=== PATIENT | female | born 1930 | race Caucasian/White ===

== ENCOUNTER 2018-09-23 18:18 | Inpatient (IN) ==
[2018-09-23] MEDS ORDERED: SODIUM CHLORIDE 0.9% 500 ML IV SCH (18:45)
--- NOTE | 2018-09-23 19:12 | XRay Report ---
XR chest 1V portable CLINICAL HISTORY: weakness COMPARISON STUDY: Chest radiograph June 17, 2010. FINDINGS: Linear left basilar opacity favors atelectasis. There is no evidence for pulmonary edema or pneumonia. Cardiomediastinal silhouette is unchanged. Cardiomegaly is stable. IMPRESSION: No acute cardiopulmonary findings. Electronically signed by: Watson Cornejo M.D. 09/23/2018 7:11 PM
[2018-09-23 19:14] LABS: Hematocrit (blood only) 32.3 % (37-47); Hemoglobin 9.8 g/dL (12.0-16.0); Mean Corpuscular Hgb Conc 30.3 g/dL (32-36); Mean Corpuscular Volume 78.4 fL (80-100); Mean Platelet Volume 8.2 fL (7.4-10.4); Platelet Count 476 K/uL (130-400); RDW Coefficient of Variation 20.1 % (11.5-14.5); RDW Standard Deviation 56.7 fL (36.4-46.3); Red Blood Count 4.12 M/uL (4.2-5.4); White Blood Count 11.29 K/uL (4.8-10.8)
[2018-09-23 19:31] LABS: Alanine Aminotransferase 17 U/L (12-78); Albumin Level 1.9 gm/dl (3.4-5.0); Aspartate Aminotransferase 26 U/L (15-37); BUN Creatinine Ratio 24.6 (10-20); Blood Urea Nitrogen 40 mg/dl (7-18); Carbon Dioxide 22 mmol/L (21-32); Chloride 106 mmol/L (98-107); Creatinine Clr Calc Pharmacy 23.9 ml/min; Est GFR (African American) 31.8; Est GFR (Non-African American) 27.4; Glucose 105 mg/dl (70-99); Magnesium 2.2 mg/dl (1.8-2.4); Potassium 3.8 mmol/L (3.5-5.1); Sodium 139 mmol/L (136-145)
[2018-09-23 19:35] LABS: Prothrombin Time 46.9 Seconds (9.0-12.0)
[2018-09-23 19:42] LABS: Albumin Globulin Ratio 0.4 (0.9-2); Alkaline Phosphatase 121 U/L (45-117); Bilirubin,Total 0.3 mg/dl (0.2-1); Globulin 5.2 gm/dl (2.5-4.0); Total Protein 7.1 gm/dl (6.4-8.2); Troponin I < 0.015 ng/ml (0-0.045)
[2018-09-23 19:58] LABS: Appearance Urine Clear (Clear); Bacteria Urine Automated 3+ (Negative); Bilirubin Urine Negative (Negative); Blood Urine 2+ (Negative); Color Urine Yellow; Epithelial Cell Urine Auto >30 /lpf (0-5); Glucose Urine UA Negative (Negative); Ketones Urine Trace (Negative); Leukocyte Esterase Urine Negative (Negative); Nitrite Urine Positive (Negative); Protein Urine Trace (Negative); RBC Urine Automated >30 /hpf (0-4); Specific Gravity Urine 1.028 (1.000-1.030); Urobilinogen Urine Negative (Negative)
[2018-09-23 20:08] LABS: Basophils # (auto) 0.01 K/uL (0-0.2); Basophils % (auto) 0.1 %; Hypochromasia Present; Immature Granulocytes # (auto) 0.04 K/uL (0.00-0.02); Immature Granulocytes % (auto) 0.4 %; Lymphocytes # (auto) 1.16 K/uL (1.2-3.4); Lymphocytes % (auto) 10.3 %; Monocytes # (auto) 0.51 K/uL (0.11-0.59); Monocytes % (auto) 4.5 %; Neutrophils # (auto) 9.57 K/uL (1.4-6.5); Neutrophils % (auto) 84.7 %; Polychromasia 1+
[2018-09-23 20:10] LABS: INR 5.1 (0.9-1.1)
[2018-09-23 20:34] LABS: Partial Thromboplastin Ratio 1.8
[2018-09-23] MEDS ORDERED: cefTRIAXone SODIUM 1,000 MG/50 ML BAG IV STA (20:36)
[2018-09-23 20:40] LABS: Mucus Urine Present (None Prsent)
[2018-09-23 20:49] LABS: Partial Thromboplastin Time 48.7 Seconds (21.0-31.0)
--- NOTE | 2018-09-23 20:54 | CT Scan Report ---
CT OF THE HEAD WITHOUT CONTRAST CLINICAL HISTORY: confused, weak COMPARISON STUDY: No previous studies for comparison. CT DOSE: 614.27 mGy.cm TECHNIQUE: Helical axial images of the head were obtained without IV contrast. Automated exposure con trol was utilized for the study. A dose lowering technique was utilized adhering to the principles o f ALARA. FINDINGS: No acute intracranial hemorrhage, midline shift or mass effect is present. There is moderat e atrophy and small vessel disease. 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 There are no findings to suggest acute dural sinus thrombosis or acute territorial infarct. The bas ilar cisterns are patent. There are no extra axial collections. Ventricular system is unremarkable. T here are no significant calvarial abnormalities. Visualized portions of the sinuses and mastoid air c ells are clear. IMPRESSION: No acute intracranial findings. Electronically signed by: Watson Cornejo M.D. 09/23/2018 8:53 PM
[2018-09-23] MEDS ORDERED: PANTOprazole 80 MG in DEXTROSE 5% 100 ML IV STA (21:02)
[2018-09-23] MEDS ORDERED: PHYTONADIONE 5 MG in SODIUM CHLORIDE 0.9% 50 ML IV ONE (21:02)
--- NOTE | 2018-09-23 21:12 | Emergency Department Note ---
Entered by Efe Pereyra acting as a scribe for Hakeem Michel MD History of Present Illness General Chief complaint: Weakness Stated complaint: WEAKNESS, UNABLE TO STAND Time Seen by Provider: 09/23/18 18:25 Source: patient and other (nurse) Limitations: other (mental state) History of Present Illness Onset (ago): hour(s) (today) Location: head (global) Pain Consistency: + other (worsening) Quality: + other (weakness) Associated symptoms: + other (patient denies loss of appetite, urinary symptoms, chest pain, or shortness of breath) History is limited due to mental state. The patient is an 88 year old female who presents to the Emergency Room via EMS with worsening weakness. The patient reportedly slid off of the chair this morning onto the floor. She lives alone and is regularly visited by caretakers. The patient states that she has felt weaker than usual. She denies loss of appetite, urinary symptoms, chest pain, or shortness of breath. Home Medications Home Medications Medication Instructions Recorded Confirmed Type acetaminophen [Tylenol Extra 500 mg PO QID PRN 09/23/18 09/23/18 History Strength] atorvastatin [Lipitor] 20 mg PO HS 09/23/18 09/23/18 History cholecalciferol (vitamin D3) 1,000 unit PO HS 09/23/18 09/23/18 History [Vitamin D3] furosemide 20 mg PO DAILY 09/23/18 09/23/18 History glipizide 5 mg PO BID 09/23/18 09/23/18 History lisinopril 2.5 mg PO HS 09/23/18 09/23/18 History metoprolol succinate [Toprol XL] 50 mg PO HS 09/23/18 09/23/18 History potassium chloride 10 meq PO DAILY 09/23/18 09/23/18 History tramadol 50 mg PO Q6H PRN 09/23/18 09/23/18 History warfarin [Coumadin] 2 mg PO UD 09/23/18 09/23/18 History Allergies Allergy/AdvReac Type Severity Reaction Status Date / Time morphine Allergy Unknown Verified 09/23/18 19:31 codeine AdvReac Unknown UPSET Verified 09/23/18 19:40 STOMACH Past Med/Surg History Medical History Hypertension Family History Other Family history non-contributory Social History Preferred Language: Croatian Feels Safe at Home: Yes Smoking Status: Former smoker Review of Systems Unobtainable due to cognitive status Physical Exam Vital Signs Vital Signs - 24 hr 09/23/18 18:29 09/23/18 18:32 09/23/18 19:00 Temperature 36.5 C Temperature Source Oral Sepsis Recent Fever Within 48 Hours No Sepsis New/Unexplained Change in Mental Status No Sepsis Action Taken by Nursing No Action Required Pulse Rate 87 91 H Pulse Rate from SpO2 Sensor Respiratory Rate 20 17 Blood Pressure 114/67 Blood Pressure Mean 82 Pulse Oximetry 99 Oxygen Delivery Method Room Air Room Air 09/23/18 19:30 09/23/18 20:00 09/23/18 20:21 Temperature Temperature Source Sepsis Recent Fever Within 48 Hours Sepsis New/Unexplained Change in Mental Status Sepsis Action Taken by Nursing Pulse Rate 87 88 86 Pulse Rate from SpO2 Sensor 87 87 84 Respiratory Rate 24 13 14 Blood Pressure 113/55 L Blood Pressure Mean 74 Pulse Oximetry 99 100 98 Oxygen Delivery Method 09/23/18 20:54 Temperature Temperature Source Sepsis Recent Fever Within 48 Hours Sepsis New/Unexplained Change in Mental Status Sepsis Action Taken by Nursing Pulse Rate 88 Pulse Rate from SpO2 Sensor Respiratory Rate 17 Blood Pressure 112/60 Blood Pressure Mean 77 Pulse Oximetry Oxygen Delivery Method GENERAL: Patient is in no acute distress. HEENT: No acute trauma, normocephalic atraumatic, mucous membranes dry, no nasal congestion, no scleral icterus. NECK: No stridor, no adenopathy, no meningismus, trachea is midline. LUNGS: Clear to auscultation bilaterally, no wheeze, no rhonchi, breath sounds equal. HEART: Without murmurs gallops or rubs, regular rate and rhythm. ABDOMEN: Soft, nontender, bowel sounds positive, reducible non-tender umbilical hernia, no peritonitis. RECTAL: Brown stool, heme positive. EXTREMITIES: Mild bilateral pedal edema, somewhat worse on the right. Chronic skin changes. Erythema to the bilateral lower extremities with blistering, some of the blisters have broken. Toenails are unkempt. Moves all extremities without significant pain. NEUROLOGIC: Awake and alert, poor historian, no acute motor or sensory deficits, no focal weakness. SKIN: There is some skin breakdown to the mid-buttock. There is an erythematous rash to the groin, under the breasts and abdominal crease. Smell of yeast noted. No jaundice, no diaphoresis. Course 1825: The patient was evaluated in room C2A, and a complete history and physical examination were performed. 2100: I updated the patient and her son on results. 2102: I consulted Dr. Deo Hauser Hospitalist. The patient will be reevaluated for hospitalization. Consultations Consultation #1: I consulted Dr. Deo Hauser Hospitalist. The patient will be reevaluated for hospitalization. Time: 21:03 Administered Medications Discontinued Medications Sodium Chloride (Nss) 500 mls @ 999 mls/hr IV .Q31M SAI Stop: 09/23/18 19:15 Last Infusion: 09/23/18 20:15 Dose: 0 mls/hr Documented by: [id number] Admin: 09/23/18 19:43 Dose: 999 mls/hr Documented by: [id number] Ceftriaxone Sodium (Rocephin) 1,000 mg in 50 mls @ 100 mls/hr IV NOW STA Stop: 09/23/18 21:05 Last Admin: 09/23/18 20:53 Dose: 100 mls/hr Documented by: [id number] Medical Decision Making Differential Diagnosis Differential diagnosis: dehydration, stroke, intracranial bleeding, UTI, electrolyte imbalance, pneumonia, anemia, OK, debilitation Medical Records Attestation: I reviewed the patient's medical records. Home Medications Current Medication List: was personally reviewed by me Laboratory Data Attestation: I reviewed the patient's lab results. Result diagrams: 09/23/18 19:00 09/23/18 19:00 Lab Results 09/23/18 09/23/18 09/23/18 Range/Units 19:00 19:00 19:00 WBC 11.29 H (4.8-10.8) K/uL RBC 4.12 L (4.2-5.4) M/uL Hgb 9.8 L (12.0-16.0) g/dL Hct 32.3 L (37-47) % MCV 78.4 L (80-100) fL MCH 23.8 L (25-34) pg MCHC 30.3 L (32-36) g/dL RDW Std Deviation 56.7 H (36.4-46.3) fL RDW Coeff of Kristi 20.1 H (11.5-14.5) % Plt Count 476 H (130-400) K/uL MPV 8.2 (7.4-10.4) fL Immature Gran % (Auto) 0.4 % Neut % (Auto) 84.7 % Lymph % (Auto) 10.3 % [place] % (Auto) 4.5 % Eos % (Auto) 0.0 % Baso % (Auto) 0.1 % Immature Gran # (Auto) 0.04 H (0.00-0.02) K/uL Neut # (Auto) 9.57 H (1.4-6.5) K/uL Lymph # (Auto) 1.16 L (1.2-3.4) K/uL [place] # (Auto) 0.51 (0.11-0.59) K/uL Eos # (Auto) 0.00 (0-0.5) K/uL Baso # (Auto) 0.01 (0-0.2) K/uL Polychromasia 1+ Hypochromasia Present PT 46.9 H (9.0-12.0) Seconds INR 5.1 H (0.9-1.1) APTT (21.0-31.0) Seconds PTT Ratio Sodium 139 (136-145) mmol/L Potassium 3.8 (3.5-5.1) mmol/L Chloride 106 (98-107) mmol/L Carbon Dioxide 22 (21-32) mmol/L Anion Gap 11.0 (3-11) BUN 40 H (7-18) mg/dl Creatinine 1.64 H (0.6-1.2) mg/dl Est Cr Clr Drug Dosing 23.9 ml/min Est GFR ( Amer) 31.8 Est GFR (Non-Af Amer) 27.4 BUN/Creatinine Ratio 24.6 H (10-20) Glucose 105 H (70-99) mg/dl Calcium 8.0 L (8.5-10.1) mg/dl Magnesium 2.2 (1.8-2.4) mg/dl Total Bilirubin 0.3 (0.2-1) mg/dl AST 26 (15-37) U/L ALT 17 (12-78) U/L Alkaline Phosphatase 121 H (45-117) U/L Troponin I < 0.015 (0-0.045) ng/ml Total Protein 7.1 (6.4-8.2) gm/dl Albumin 1.9 L (3.4-5.0) gm/dl Globulin 5.2 H (2.5-4.0) gm/dl Albumin/Globulin Ratio 0.4 L (0.9-2) TSH 2.260 (0.300-4.500) uIu/ml Urine Color Urine Appearance (Clear) Urine pH (4.5-7.5) Ur Specific [place] (1.000-1.030) Urine Protein (Negative) Urine Glucose (UA) (Negative) Urine Ketones (Negative) Urine Blood (Negative) Urine Nitrite (Negative) Urine Bilirubin (Negative) Urine Urobilinogen (Negative) Ur Leukocyte Esterase (Negative) Urine WBC (Auto) (0-5) /hpf Urine RBC (Auto) (0-4) /hpf U Hyaline Cast (Auto) (0-5) /lpf U Epithel Cells (Auto) (0-5) /lpf Urine Bacteria (Auto) (Negative) Ur Renal Epithelial Cell Urine Mucus (None Prsent) 09/23/18 09/23/18 Range/Units 19:00 19:39 WBC (4.8-10.8) K/uL RBC (4.2-5.4) M/uL Hgb (12.0-16.0) g/dL Hct (37-47) % MCV (80-100) fL MCH (25-34) pg MCHC (32-36) g/dL RDW Std Deviation (36.4-46.3) fL RDW Coeff of Kristi (11.5-14.5) % Plt Count (130-400) K/uL MPV (7.4-10.4) fL Immature Gran % (Auto) % Neut % (Auto) % Lymph % (Auto) % [place] % (Auto) % Eos % (Auto) % Baso % (Auto) % Immature Gran # (Auto) (0.00-0.02) K/uL Neut # (Auto) (1.4-6.5) K/uL Lymph # (Auto) (1.2-3.4) K/uL [place] # (Auto) (0.11-0.59) K/uL Eos # (Auto) (0-0.5) K/uL Baso # (Auto) (0-0.2) K/uL Polychromasia Hypochromasia PT (9.0-12.0) Seconds INR (0.9-1.1) APTT 48.7 H* (21.0-31.0) Seconds PTT Ratio 1.8 Sodium (136-145) mmol/L Potassium (3.5-5.1) mmol/L Chloride (98-107) mmol/L Carbon Dioxide (21-32) mmol/L Anion Gap (3-11) BUN (7-18) mg/dl Creatinine (0.6-1.2) mg/dl Est Cr Clr Drug Dosing ml/min Est GFR ( Amer) Est GFR (Non-Af Amer) BUN/Creatinine Ratio (10-20) Glucose (70-99) mg/dl Calcium (8.5-10.1) mg/dl Magnesium (1.8-2.4) mg/dl Total Bilirubin (0.2-1) mg/dl AST (15-37) U/L ALT (12-78) U/L Alkaline Phosphatase (45-117) U/L Troponin I (0-0.045) ng/ml Total Protein (6.4-8.2) gm/dl Albumin (3.4-5.0) gm/dl Globulin (2.5-4.0) gm/dl Albumin/Globulin Ratio (0.9-2) TSH (0.300-4.500) uIu/ml Urine Color Yellow Urine Appearance Clear (Clear) Urine pH 5.0 (4.5-7.5) Ur Specific [place] 1.028 (1.000-1.030) Urine Protein Trace H (Negative) Urine Glucose (UA) Negative (Negative) Urine Ketones Trace H (Negative) Urine Blood 2+ H (Negative) Urine Nitrite Positive H (Negative) Urine Bilirubin Negative (Negative) Urine Urobilinogen Negative (Negative) Ur Leukocyte Esterase Negative (Negative) Urine WBC (Auto) 1-5 (0-5) /hpf Urine RBC (Auto) >30 H (0-4) /hpf U Hyaline Cast (Auto) 10-30 H (0-5) /lpf U Epithel Cells (Auto) >30 H (0-5) /lpf Urine Bacteria (Auto) 3+ H (Negative) Ur Renal Epithelial Cell Not Reportable Urine Mucus Present H (None Prsent) Imaging Data Radiologist's Impression: Radiology results as stated below per my review and the radiologist's interpretation: XR chest 1V portable CLINICAL HISTORY: weakness COMPARISON STUDY: Chest radiograph June 17, 2010. FINDINGS: Linear left basilar opacity favors atelectasis. There is no evidence for pulmonary edema or pneumonia. Cardiomediastinal silhouette is unchanged. Cardiomegaly is stable. IMPRESSION: No acute cardiopulmonary findings. Electronically signed by: Watson Cornejo M.D. 09/23/2018 7:[address] OF THE HEAD WITHOUT CONTRAST CLINICAL HISTORY: confused, weak COMPARISON STUDY: No previous studies for comparison. CT DOSE: 614.27 mGy.cm TECHNIQUE: Helical axial images of the head were obtained without IV contrast. Automated exposure control was utilized for the study. A dose lowering technique was utilized adhering to the principles of ALARA. FINDINGS: No acute intracranial hemorrhage, midline shift or mass effect is present. There is moderate atrophy and small vessel disease. 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 There are no findings to suggest acute dural sinus thrombosis or acute territorial infarct. The basilar cisterns are patent. There are no extra axial collections. Ventricular system is unremarkable. There are no significant calvarial abnormalities. Visualized portions of the sinuses and mastoid air cells are clear. IMPRESSION: No acute intracranial findings. Electronically signed by: Watson Cornejo M.D. 09/23/2018 8:53 PM ECG Data Attestation: I personally reviewed and interpreted this ECG as follows: Indication: weakness Rate (beats per minute): 85 Rhythm: normal sinus Findings: + other (old inferior infarct) and + nonspecific-ST abn; no PVC and no ST elevation Comparison ECG Date: from (06/14/10) Change: no significant change Blood Pressure Blood Pressure Findings: Normal blood pressure Blood Pressure Disposition: did not require urgent referral MDM Narrative There is a mild leukocytosis, this could be consistent with infection. The patient does have a lower hemoglobin at 9.8, platelet count was actually elevated at 476. INR was elevated at 5.1, she is over anticoagulated on Co umadin. Creatinine was elevated at 1.6, this is consistent with some dehydration. There was no hepatitis. The patient appeared to be in a euthyroid state. EKG showed a sinus rhythm, no acute ischemia. Cardiac enzyme testing x1 is not consistent with acute cardiac injury. Urinalysis is suggestive of infection, urine culture is pending. Chest film does not show pneumonia or CHF. Brain CT shows no acute bleed or mass-effect. The patient presents with fatigue and weakness. She did receive IV ceftriaxone as antibiotic coverage. She was given IV saline. He received IV vitamin K to reverse her INR. She was given IV Protonix for the potential of GI bleeding. The patient is too weak to be discharged. She is anemic with a potential GI bleed, she is dehydrated, she has a UTI. She is over anticoagulated. She has multiple findings that warrant a hospital stay. I did speak to the patient and her son, I spoke to case management. The on-call hospitalist was consulted. Of note, the patient also has yeast across multiple skin creases. She has it in the groin, and abdominal crease and beneath her breasts. This can be addressed with topical cream or powder during her hospital stay. Impression & Plan Weakness, Anemia, Dehydration, UTI (urinary tract infection), Heme positive stool Discharge Plan Visit Data Chief Complaint: Weakness Stated Complaint: WEAKNESS, UNABLE TO STAND ED Provider: Hakeem Michel Discharge Problem: Weakness, Anemia, Dehydration, UTI (urinary tract infection), Heme positive stool Patient Disposition: Being Evaluated by Hospitalist Forms Stand Alone Forms: [facility] Prescriptions Prescriptions: No Action atorvastatin [Lipitor] 20 mg tablet 20 mg PO HS RF: 0 metoprolol succinate [Toprol XL] 50 mg tablet extended release 24 hr 50 mg PO HS RF: 0 potassium chloride 10 mEq Tablet Extended Release 10 meq PO DAILY RF: 0 tramadol 50 mg Tablet 50 mg PO Q6H PRN (Reason: Pain) RF: 0 acetaminophen [Tylenol Extra Strength] 500 mg Tablet 500 mg PO QID PRN (Reason: Pain) RF: 0 warfarin [Coumadin] 2 mg tablet 2 mg PO UD RF: 0 furosemide 20 mg tablet 20 mg PO DAILY RF: 0 lisinopril 2.5 mg Tablet 2.5 mg PO HS RF: 0 glipizide 5 mg Tablet 5 mg PO BID RF: 0 cholecalciferol (vitamin D3) [Vitamin D3] 1,000 unit Tablet 1,000 unit PO HS RF: 0 Referrals Referrals: Heri Blackmon [Primary Care Provider] - Discharge Problem: Anemia Qualifiers: Anemia type: unspecified type Qualified Code(s): D64.9 - Anemia, unspecified UTI (urinary tract infection) Qualifiers: Urinary tract infection type: site unspecified Hematuria presence: with hematuria Qualified Code(s): N39.0 - Urinary tract infection, site not specified The scribe's documentation has been prepared under my direction and personally reviewed by me in its entirety. I confirm that the note above accurately r eflects all work, treatment, procedures, and medical decision making performed by me.
[2018-09-23] MEDS ORDERED: FLUCONAZOLE SUSP 100 MG/10 ML UDP PO STA (23:30)
[2018-09-24] MEDS ORDERED: POLYETHYLENE (MIRALAX) 17 GM PACK PO PRN (00:36)
[2018-09-24] MEDS ORDERED: SODIUM CHLORIDE 0.9% 1000ML 1,000 ML IV SCH (00:36)
[2018-09-24] MEDS ORDERED: ACETAMINOPHEN 325 MG TAB PO PRN (00:36)
[2018-09-24] MEDS ORDERED: GLUCOSE 40% GEL 15 GM TUBE PO PRN (00:45)
[2018-09-24] MEDS ORDERED: DEXTROSE 50% 50 ML SYRINGE IV PRN (00:45)
[2018-09-24] MEDS ORDERED: CARBOHYDRATES FOR HYPOGLYCEMIA PO PRN (00:45)
[2018-09-24] MEDS ORDERED: GLUCAGON FOR INJ 1 MG VIAL IM PRN (00:45)
[2018-09-24] MEDS ORDERED: GLUCOSE 10 TABS/TUBE PO PRN (00:45)
[2018-09-24] MEDS: PANTOprazole 40 MG in DEXTROSE 5% 100 ML IV SCH ×5 (02:11→21:07)
[2018-09-24] MEDS ORDERED: PNEUMOCOCCAL ADMINISTRATION CHARGE ONE (02:15)
[2018-09-24] MEDS ORDERED: INFLUENZA VACCINE HIGH DOSE 65+ 0.5 ML SYR IM ONE (02:15)
[2018-09-24] MEDS ORDERED: PNEUMOCOCCAL POLYSACCHARIDES 25 MCG/0.5 ML VIAL/SYR IM ONE (02:15)
[2018-09-24] MEDS ORDERED: INFLUENZA ADMINISTRATION CHARGE ONE ×2 (02:15→02:30)
[2018-09-24] MEDS ORDERED: INFLUENZA VIRUS QUAD VACCINE 0.5 ML SYR IM ONE (02:30)
[2018-09-24] MEDS: TRAMADOL HCL 50 MG TABLET PO PRN (02:30)
[2018-09-24 05:56] LABS: Hematocrit (blood only) 27.5 % (37-47); Hemoglobin 8.3 g/dL (12.0-16.0); Immature Granulocytes # (auto) 0.05 K/uL (0.00-0.02); Immature Granulocytes % (auto) 0.4 %; Lymphocytes # (auto) 1.23 K/uL (1.2-3.4); Lymphocytes % (auto) 9.5 %; Mean Corpuscular Hgb Conc 30.2 g/dL (32-36); Mean Corpuscular Volume 78.8 fL (80-100); Mean Platelet Volume 7.9 fL (7.4-10.4); Monocytes # (auto) 0.48 K/uL (0.11-0.59); Monocytes % (auto) 3.7 %; Neutrophils # (auto) 11.23 K/uL (1.4-6.5); Neutrophils % (auto) 86.4 %; Platelet Count 406 K/uL (130-400); RDW Standard Deviation 56.8 fL (36.4-46.3); Red Blood Count 3.49 M/uL (4.2-5.4); White Blood Count 12.99 K/uL (4.8-10.8)
[2018-09-24 06:14] LABS: Calcium 7.5 mg/dl (8.5-10.1); Creatinine Clr Calc Pharmacy 26.6 ml/min; Est GFR (African American) 36.3; Est GFR (Non-African American) 31.3; Magnesium 2.2 mg/dl (1.8-2.4); Potassium 3.3 mmol/L (3.5-5.1)
[2018-09-24 06:18] LABS: Ferritin 118.9 ng/ml (8-388)
[2018-09-24 06:26] LABS: Anisocytosis Present; Hypochromasia Present
[2018-09-24] MEDS ORDERED: POTASSIUM CHLORIDE 20 MEQ TABCR PO STA (06:37)
[2018-09-24 06:47] LABS: Estimated Average Glucose 163 mg/dl; Hemoglobin A1C 7.3 % (4.5-5.6)
--- NOTE | 2018-09-24 07:40 | History and Physical Report ---
DATE OF ADMISSION: 09/23/2018 CHIEF COMPLAINT: Weakness, fall. HISTORY OF PRESENT ILLNESS: An 88-year-old female with past medical history significant for type 2 diabetes, right-sided heart failure, hypertension, history of MT, history of hemorrhoids, gastrointestinal hemorrhage, generalized osteoarthritis, iron deficiency anemia, history of pulmonary embolism, venous thrombosis on Coumadin, was brought in because of fall at home. The patient lives alone but son lives close by and other family lives close by and they help her every day. They go and see her 3-4 times every day. The patient has a hospital bed and she also has a lift chair. As per son, the patient is not ambulating since last 3 weeks before she used to at least transfer from the chair to the bed but right now she is just sitting on her recliner chair and she just gets up and sits on the commode for bathroom and the family has to help wipe her and she goes back to recliner chair and stays there whole day .Three weeks ago, she had a fall. Her falls were generally sliding from the chair, but at that time she adamantly refused to come to the hospital and get admitted and she had refused to go to any fpc, but today again she fell a couple of times, slid from her lift chair and she agreed to come to the hospital. The patient's appetite is good. She is eating regular food, she can swallow okay. She gets Food on Wheels and also family help get the food sometimes. She says she is going to bathroom okay, micturating fine. No burning micturition. Stools are fine. Denies any abdominal pain. She was nauseous on and off. She has occasional dry cough. Denies any chest pain, no shortness of breath, no headache, no blurred vision, no sore throat, no fever, no chills, feeling somewhat chilly, but no fevers. She has chronic lower extremity erythema and swelling, some skin changes, but that gets on and off worse and states that lately she also developed some ulcers in the buttock region and she also has a fungal infection going on below the breast, groins and perineum region and possibly in lower extremity too. Currently, resting comfortable and hemodynamically stable, alert and oriented and her INR was 5.1 in the ER, her hemoglobin was 9.8, she did not go to doctors for about a year as per the son and she refused to go and her last hemoglobin was in 2015 and was 12.3. She was trace Hemoccult positive in the ER. She was given Protonix in the ER and IV vitamin K. She also has history of GI bleed in the past. She was found to be anemic in 02/2009 and she was scoped at that time and found to be due to the duodenal bulb ulcer and also mild gastritis. At that time she was taking 81 strength aspirin eight tablets per day for arthritis and she stopped taking them but after that she developed a pulmonary embolism and DVT transferred by ambulance To [place] and s/p IVC filter placement as well as placed on Coumadin and she again followed GI after that in 2009 and she declined colonoscopy at that time and she seems to be not taking aspirin or NSAIDs on Tylenol p.r.n. for pain. ALLERGIES: MORPHINE AND CODEINE. PAST MEDICAL HISTORY: As mentioned above. PAST SURGICAL HISTORY: Appendectomy, EGD with biopsy, arteriogram for pulmonary artery, laparoscopic cholecystectomy. MEDICATIONS: Lipitor 20 mg p.o. daily, Coumadin 2 mg as directed, Lasix 20 mg p.o. daily, Toprol-XL 50 mg p.o. daily, potassium chloride ER 10 mg p.o. daily, lisinopril 2.5 mg p.o. daily, glipizide 5 mg p.o. b.i.d., vitamin D 1000 units p.o. daily, Demerol 50 mg p.o. q. 6 hours p.r.n., Tylenol 500 mg q.i.d. p.r.n. FAMILY HISTORY: Significant for brother with pancreatic cancer. Sister with ovarian cancer. SOCIAL HISTORY: Currently lives alone. Family helps her. Quit tobacco 35 years ago. No alcohol use, no drug use. REVIEW OF SYMPTOMS: As per HPI. Rest is negative. PHYSICAL EXAMINATION: GENERAL: The patient is of moderate build, not in acute distress. The patient is obese. VITAL SIGNS: Temperature 36.5, pulse 85, respiratory rate 18, blood pressure 90/43, oxygen 99% room air. HEENT: No pallor, no icterus. Pupils equal, round and reactive to light. NECK: No JVD, no neck mass, no carotid bruit. CARDIOVASCULAR: S1, S2 heard, regular rate and rhythm, no murmur, no gallop. RESPIRATORY SYSTEM: Normal AP diameter. No accessory muscle use. No wheezing, no crackles. ABDOMEN: Soft. Bowel sounds present. Nontender. No distention. CENTRAL NERVOUS SYSTEM: Alert and oriented. Cranial nerves II-XII grossly nonfocal. EXTREMITIES: Lower extremity, mild pedal edema present and some mild erythematous changes. SKIN: Erythematous whitish rash seen under her breast, the groins and perineal region and lower extremity and also stage II decubitus ulcers seen in the sacral region. LABS: WBC 11.2, hemoglobin 9.8, hematocrit 32.3, platelets 476. PT 46.9, INR 5.1, APTT 48.7. Sodium 113, potassium 3.8, chloride 106, bicarbonate 22, BUN 40, creatinine 1.64, glucose 105, calcium 8, magnesium 2.2, total bilirubin 0.3, AST 76, ALT 17, alkaline phosphatase 121. Troponin I less than 0.015. TSH 2.2. Urinalysis positive for leukocyte esterase and positive for nitrite. CT of the head, no acute intracranial findings. Chest x-ray, no acute cardiopulmonary findings. EKG: Normal sinus rhythm, rate of 85, left axis deviation, nonspecific ST changes seen. ASSESSMENT AND PLAN: This is an 88-year-old female who presents with ambulatory dysfunction, fall, found to have urinary tract infection, possible dehydration, decubitus ulcer and also ongoing fungal infection and trace Hemoccult positive with anemia. 1. Fall, ambulatory dysfunction. The patient slid couple of times from chair today.Since last 3 weeks she is not at all ambulating. At least before she was transferring from chair to bed. Right now she is only sleeping on recliner, refused to come to the hospital, but she was okay to the come today after couple of falls . She lives alone. Family helps her. We will admit to medical floor. PT and OT and Social service to help with discharge plan. The patient may need placement. 2. Anemia. Hemoglobin 9.8. Her last hemoglobin was 12.3 in 2016. History of duodenal ulcers in the past, on Coumadin. History of hemorrhoids. Trace Hemoccult positive in ER. We will follow iron studies, vitamin B12, folate levels and received IV vitamin K in the ER. Hold Coumadin for now. We will keep her n.p.o., Protonix drip and consult GI for further recommendations in a.m. and follow H and H q. 8 hours and transfuse as needed. No obvious bleeding at this time. 3. Possible urinary tract infection. We will follow urine cultures, on Rocephin. 4. Acute kidney injury on chronic kidney disease stage III, baseline creatinine 1.4 in 2016. Currently 1.6. Getting gentle fluids until tomorrow. We will follow repeat labs. 5. History of right-sided heart failure, on Lasix 20 mg p.o. daily, on lisinopril and Toprol-XL. Very gentle fluids for now and follow for any volume overload. 6. History of coronary artery disease, on statin and Toprol-XL. 7. History of diabetes. Hold glipizide. The patient is on insulin sliding scale. Follow HbA1c level. 8. History of hypertension. Continue lisinopril and Toprol-XL. We will follow the blood pressure. 9. History of pulmonary embolism and deep venous thrombosis, status post IVC filter, on Coumadin. Now supratherapeutic.Received Vitamin K in ER.Hold Coumadin for possible GI bleed. 10. Generalized osteoarthritis. Pain meds as needed. 11. Deep vein thrombosis prophylaxis, INR is supratherapeutic. SCDs if INR subtherapeutic. DISPOSITION: Close monitor in the medical floor. Code status level 3. Social service to help with discharge plan. PT and OT prior to discharge. SMITHA
[2018-09-24] MEDS: NYSTATIN POWDER 15GM BTL EXT SCH ×2 (07:41→20:22)
[2018-09-24] MEDS: POTASSIUM CHLORIDE 10 MEQ TABCR PO SCH (07:41)
[2018-09-24] MEDS: FUROSEMIDE 20 MG TAB PO SCH (07:41)
[2018-09-24] MEDS: INSULIN ASPART 100 UNITS/ML 3 ML PEN SC SCH ×4 (08:00→20:23)
--- NOTE | 2018-09-24 08:30 | Hospitalist Progress Note ---
Date of Service September 24, 2018 Subjective Started on po Diflucan and nystatin powder for extensive fungal infection under breast, abdominal creases and groin and perineum region. Wound care consult for decubitus ulcer stage 2. Physical Exam Vital Signs (Past 24 Hours): Last Vital Signs Temp 36.3 C L 09/24/18 07:58 Pulse 79 09/24/18 07:58 Resp 20 09/24/18 07:58 BP 135/77 09/24/18 07:58 Pulse Ox 100 09/24/18 07:58
--- NOTE | 2018-09-24 10:52 | Gastrointestinal Consultation ---
Date of Consultation September 24, 2018 Assessment & Plan (1) Anemia: (2) Heme positive stool: Pt is a 88 y/o female admitted for increased weakness, falls found to have microcytic anemia, heme positive brown stools on exam. Her INR was 5 on presentation, on Coumadin for hx of PE. Hx of duodenal bulb ulcers in 2008 related to high doses ASA uses. Still using ASA but denies any NSAIDs. She denies any signs of rectal bleeding or dark tarry stools, abd exam benign. She refused to undergo any endoscopic evaluations. - Repeat PT/INR after administration of Vit K last night. - Monitor H/H and transfuse prn. Iron and FA supplements - Defer endoscopic evals per pt's request - PPI gtt to complete today then may transition to PO BID dose if no signs of radha GI bleeding. - Avoid NSAIDs and high dose ASA. - Ok to resume diet as tolerated. Supervising Physician Co-Signing Physician Notes I saw and evaluated the patient. We are consulted for evaluation of heme positive stools and anemia. Physical examination Elderly female, pale appearing Obese abdomen Impression: Patient with evidence of a microcytic anemia and heme positive stools. There are number of possible etiologies to consider such as peptic ulcer disease AVMs or even colorectal masses or tumors. I did have a discussion with the patient and her family as they were at her bedside this afternoon. We offered the patient upper endoscopy and colonoscopy for further evaluation. Patient is presently not interested in these interventions. Recommendation Consider closer control of the patient's INR Consider use of an iron supplement as an outpatient Please let us know if the patient decides upon endoscopic evaluation for her anemia. Consider evaluation for urinary losses History of Present Illness Reason for Consultation: Heme positive stool Requesting Physician: Dr. Gutierrez Desouza Attending Physician: Dr. Jada Min History of Present Illness Pt is a 88 y/o who presented to ED yesterday w c/o weakness x 3 weeks and several falls at home. She lives alone, but said family/friends check on her daily. She receives food from [employer]. She hasn't been under a physician care for many years. She is found to have fungal infections on groin area and poor skin integrity on bilateral legs, decubitus ulcers and also ungroomed toenails, and also having a UTI (on Ceftriaxone). Labs notable for increased WBC, anemia w H/H 02/16, CMV 78. Low iron indices and FA. Elevated Vit B12. Her stools were checked and tested heme positive though she denies any rectal bleeding or dark, tarry stools. Noted stools were brown on exam by ED physician. Her INR was 5. She had been on Coumadin for hx of PE, also had hx of IVC placement >10 yrs ago. Her CXR, head CT were unremarkable. Pt did have hx of duodenal bulb ulcers found via EGD 10 yrs ago, etiology suspected to be due to high doses of ASA she takes for arthritic pain. She had refused any other f/u EGDs or colonoscopy in the past during her GI f/u. She currently denies uses of NSAIDs. Reports still take 2-3 tabs of ASA "very little times". She denies any abd pain, n/v. Does have mild occasional heartburn.States appetite good. No CP,SOB. Main complaints are related to R leg pain. Allergies Allergy/AdvReac Type Severity Reaction Status Date / Time morphine Allergy Unknown Verified 09/23/18 19:31 codeine AdvReac Unknown UPSET Verified 09/23/18 19:40 STOMACH Home Medications Home Medications Medication Instructions Recorded Confirmed Type acetaminophen [Tylenol Extra 500 mg PO QID PRN 09/23/18 09/23/18 History Strength] atorvastatin [Lipitor] 20 mg PO HS 09/23/18 09/23/18 History cholecalciferol (vitamin D3) 1,000 unit PO HS 09/23/18 09/23/18 History [Vitamin D3] furosemide 20 mg PO DAILY 09/23/18 09/23/18 History glipizide 5 mg PO BID 09/23/18 09/23/18 History lisinopril 2.5 mg PO HS 09/23/18 09/23/18 History metoprolol succinate [Toprol XL] 50 mg PO HS 09/23/18 09/23/18 History potassium chloride 10 meq PO DAILY 09/23/18 09/23/18 History tramadol 50 mg PO Q6H PRN 09/23/18 09/23/18 History warfarin [Coumadin] 2 mg PO UD 09/23/18 09/23/18 History Patient History Medical History Hypertension Family History Other Family history non-contributory Social History Communication Ability: Effective Beliefs That Will Affect Care: None Current Living Situation: Alone Other Information That Helps Us Care for You: No Feels Safe at Home: Yes Safety Concerns: Feels Safe At This Time Smoking Status: Former smoker Hx Alcohol Use: No Hx Substance Use: No Review of Systems See HPI above Physical Exam Vital Signs (Past 24 Hours): Last Vital Signs Temp 36.3 C L 09/24/18 07:58 Pulse 79 09/24/18 07:58 Resp 20 09/24/18 07:58 BP 135/77 09/24/18 07:58 Pulse Ox 100 09/24/18 07:58 Constitutional: WD/WN, vitals as above + disheveled, cooperative and comfortable Eyes: PERRL, conjunctivae normal, anicteric sclerae ENMT: external ear and nose normal, oropharynx normal Respiratory: normal respiratory effort, lungs clear to auscultation Cardiovascular: RRR, no murmur, no edema Gastrointestinal (Abdomen): normal bowel sounds, soft, nontender, no hepatosplenomegaly Skin: + rash (groin/under abd fold fungal rash), + ulcer and + wound (on bilateral legs); no jaundice Neurologic: Motor/Sensory: no asterixis Psychiatric: A+Ox3, euthymic affect Lymphatic: no lymphedema Results & Data Laboratory Results Laboratory Results - last 72 hr 09/23/18 09/23/18 09/23/18 19:00 19:00 19:00 WBC 11.29 H RBC 4.12 L Hgb 9.8 L Hct 32.3 L MCV 78.4 L MCH 23.8 L MCHC 30.3 L RDW Std Deviation 56.7 H RDW Coeff of Kristi 20.1 H Plt Count 476 H MPV 8.2 Immature Gran % (Auto) 0.4 Neut % (Auto) 84.7 Lymph % (Auto) 10.3 [place] % (Auto) 4.5 Eos % (Auto) 0.0 Baso % (Auto) 0.1 Immature Gran # (Auto) 0.04 H Neut # (Auto) 9.57 H Lymph # (Auto) 1.16 L [place] # (Auto) 0.51 Eos # (Auto) 0.00 Baso # (Auto) 0.01 Polychromasia 1+ Hypochromasia Present Anisocytosis PT 46.9 H INR 5.1 H APTT PTT Ratio Sodium 139 Potassium 3.8 Chloride 106 Carbon Dioxide 22 Anion Gap 11.0 BUN 40 H Creatinine 1.64 H Est Cr Clr Drug Dosing 23.9 Est GFR ( Amer) 31.8 Est GFR (Non-Af Amer) 27.4 BUN/Creatinine Ratio 24.6 H Glucose 105 H POC Glucose Estimat Average Glucose Hemoglobin A1c Calcium 8.0 L Magnesium 2.2 Iron Transferrin Transferrin % Sat Ferritin Total Bilirubin 0.3 AST 26 ALT 17 Alkaline Phosphatase 121 H Troponin I < 0.015 Total Protein 7.1 Albumin 1.9 L Globulin 5.2 H Albumin/Globulin Ratio 0.4 L Vitamin B12 Folate TSH 2.260 Urine Color Urine Appearance Urine pH Ur Specific [place] Urine Protein Urine Glucose (UA) Urine Ketones Urine Blood Urine Nitrite Urine Bilirubin Urine Urobilinogen Ur Leukocyte Esterase Urine WBC (Auto) Urine RBC (Auto) U Hyaline Cast (Auto) U Epithel Cells (Auto) Urine Bacteria (Auto) Ur Renal Epithelial Cell Urine Mucus 09/23/18 09/23/18 09/24/18 19:00 19:39 05:35 WBC 12.99 H RBC 3.49 L Hgb 8.3 L Hct 27.5 L MCV 78.8 L MCH 23.8 L MCHC 30.2 L RDW Std Deviation 56.8 H RDW Coeff of Kristi 20.0 H Plt Count 406 H MPV 7.9 Immature Gran % (Auto) 0.4 Neut % (Auto) 86.4 Lymph % (Auto) 9.5 [place] % (Auto) 3.7 Eos % (Auto) 0.0 Baso % (Auto) 0.0 Immature Gran # (Auto) 0.05 H Neut # (Auto) 11.23 H Lymph # (Auto) 1.23 [place] # (Auto) 0.48 Eos # (Auto) 0.00 Baso # (Auto) 0.00 Polychromasia Hypochromasia Present Anisocytosis Present PT INR APTT 48.7 H* PTT Ratio 1.8 Sodium Potassium Chloride Carbon Dioxide Anion Gap BUN Creatinine Est Cr Clr Drug Dosing Est GFR ( Amer) Est GFR (Non-Af Amer) BUN/Creatinine Ratio Glucose POC Glucose Estimat Average Glucose Hemoglobin A1c Calcium Magnesium Iron Transferrin Transferrin % Sat Ferritin Total Bilirubin AST ALT Alkaline Phosphatase Troponin I Total Protein Albumin Globulin Albumin/Globulin Ratio Vitamin B12 Folate TSH Urine Color Yellow Urine Appearance Clear Urine pH 5.0 Ur Specific [place] 1.028 Urine Protein Trace H Urine Glucose (UA) Negative Urine Ketones Trace H Urine Blood 2+ H Urine Nitrite Positive H Urine Bilirubin Negative Urine Urobilinogen Negative Ur Leukocyte Esterase Negative Urine WBC (Auto) 1-5 Urine RBC (Auto) >30 H U Hyaline Cast (Auto) 10-30 H U Epithel Cells (Auto) >30 H Urine Bacteria (Auto) 3+ H Ur Renal Epithelial Cell Not Reportable Urine Mucus Present H 09/24/18 09/24/18 09/24/18 05:35 05:35 05:35 WBC RBC Hgb Hct MCV MCH MCHC RDW Std Deviation RDW Coeff of Kristi Plt Count MPV Immature Gran % (Auto) Neut % (Auto) Lymph % (Auto) [place] % (Auto) Eos % (Auto) Baso % (Auto) Immature Gran # (Auto) Neut # (Auto) Lymph # (Auto) [place] # (Auto) Eos # (Auto) Baso # (Auto) Polychromasia Hypochromasia Anisocytosis PT INR APTT PTT Ratio Sodium 140 Potassium 3.3 L Chloride 108 H Carbon Dioxide 25 Anion Gap 7.0 BUN 35 H Creatinine 1.47 H Est Cr Clr Drug Dosing 26.6 Est GFR ( Amer) 36.3 Est GFR (Non-Af Amer) 31.3 BUN/Creatinine Ratio 24.0 H Glucose 134 H POC Glucose Estimat Average Glucose 163 Hemoglobin A1c 7.3 H Calcium 7.5 L Magnesium 2.2 Iron 14 L Transferrin 108 L Transferrin % Sat 9 L Ferritin 118.9 Total Bilirubin AST ALT Alkaline Phosphatase Troponin I Total Protein Albumin Globulin Albumin/Globulin Ratio Vitamin B12 1198 H Folate 2.00 L TSH Urine Color Urine Appearance Urine pH Ur Specific [place] Urine Protein Urine Glucose (UA) Urine Ketones Urine Blood Urine Nitrite Urine Bilirubin Urine Urobilinogen Ur Leukocyte Esterase Urine WBC (Auto) Urine RBC (Auto) U Hyaline Cast (Auto) U Epithel Cells (Auto) Urine Bacteria (Auto) Ur Renal Epithelial Cell Urine Mucus 09/24/18 07:48 WBC RBC Hgb Hct MCV MCH MCHC RDW Std Deviation RDW Coeff of Kristi Plt Count MPV Immature Gran % (Auto) Neut % (Auto) Lymph % (Auto) [place] % (Auto) Eos % (Auto) Baso % (Auto) Immature Gran # (Auto) Neut # (Auto) Lymph # (Auto) [place] # (Auto) Eos # (Auto) Baso # (Auto) Polychromasia Hypochromasia Anisocytosis PT INR APTT PTT Ratio Sodium Potassium Chloride Carbon Dioxide Anion Gap BUN Creatinine Est Cr Clr Drug Dosing Est GFR ( Amer) Est GFR (Non-Af Amer) BUN/Creatinine Ratio Glucose POC Glucose 128 H Estimat Average Glucose Hemoglobin A1c Calcium Magnesium Iron Transferrin Transferrin % Sat Ferritin Total Bilirubin AST ALT Alkaline Phosphatase Troponin I Total Protein Albumin Globulin Albumin/Globulin Ratio Vitamin B12 Folate TSH Urine Color Urine Appearance Urine pH Ur Specific [place] Urine Protein Urine Glucose (UA) Urine Ketones Urine Blood Urine Nitrite Urine Bilirubin Urine Urobilinogen Ur Leukocyte Esterase Urine WBC (Auto) Urine RBC (Auto) U Hyaline Cast (Auto) U Epithel Cells (Auto) Urine Bacteria (Auto) Ur Renal Epithelial Cell Urine Mucus (1) Anemia Anemia type: unspecified type Qualified Code(s): D64.9 - Anemia, unspecified
[2018-09-24 12:30] LABS: Hemoglobin 8.4 g/dL (12.0-16.0); Immature Granulocytes # (auto) 0.05 K/uL (0.00-0.02); Immature Granulocytes % (auto) 0.4 %; Lymphocytes # (auto) 0.93 K/uL (1.2-3.4); Mean Corpuscular Volume 78.7 fL (80-100); Monocytes # (auto) 0.46 K/uL (0.11-0.59); Neutrophils # (auto) 10.13 K/uL (1.4-6.5); Neutrophils % (auto) 87.6 %; Platelet Count 394 K/uL (130-400); RDW Coefficient of Variation 20.2 % (11.5-14.5); RDW Standard Deviation 57.2 fL (36.4-46.3); Red Blood Count 3.56 M/uL (4.2-5.4); White Blood Count 11.57 K/uL (4.8-10.8)
[2018-09-24 12:40] LABS: INR 1.6 (0.9-1.1); Prothrombin Time 15.7 Seconds (9.0-12.0)
[2018-09-24 13:00] LABS: Potassium 3.9 mmol/L (3.5-5.1)
[2018-09-24 13:01] LABS: BUN Creatinine Ratio 23.9 (10-20); Calcium 7.5 mg/dl (8.5-10.1); Creatinine Clr Calc Pharmacy 27.9 ml/min; Est GFR (African American) 38.5; Est GFR (Non-African American) 33.2
--- NOTE | 2018-09-24 13:09 | Consultation Report ---
DATE OF CONSULTATION: 09/24/2018 HISTORY OF PRESENT ILLNESS: An 88-year-old female admitted to the ER secondary to falls, UTI and possible dehydration. The patient was seen at bedside due to ulcerations and elongated nails. PAST SURGICAL HISTORY: Appendectomy, pulmonary arteriogram, laparoscopy. PAST MEDICAL HISTORY: Diabetes type 2, heart failure, hypertension, history of MS, anemia, history of PE/deep vein thrombosis, kidney disease stage III, CAD. MEDICATIONS: Per chart. ALLERGIES: MORPHINE AND CODEINE. FAMILY HISTORY: Cancer. LOWER EXTREMITY PHYSICAL EXAM: VASCULAR: DP 1/4 right, 2/4 left. PT 1/4 right, 2/4 left. Pitting edema bilateral lower extremities. Absence of digital hair. Absence of cap refill. DERMATOLOGIC: Denuded skin noted in anterior legs bilaterally with weeping clear fluid drainage. No open ulcerations. Nails mycotic, dystrophic, yellow discolored with multiple layers ____. NEUROLOGIC: Epicritic sensation decreased. MUSCULOSKELETAL: Collapsing calcaneal valgus foot type. IMPRESSION: 1. Diabetes mellitus with early peripheral vascular disease and peripheral neuropathy. 2. Venous insufficiency with denuded skin bilateral lower legs, risk for cutaneous breakdown, ulceration. 3. Painful onychomycosis. 4. Cellulitis bilateral legs, mild. TREATMENT: 1. Debridement mycotic nails at bedside 1 through 5 bilaterally. 2. Recommend continued offloading devices as seen at bedside with heel protectors and bandaging. Recommend regular followup due to high risk of limb loss. 3. Discussed the need for a diabetic followup and care. Recommend the patient be seen by [employer] officer in 3-6 months or sooner if needed. Thank you for the consult.
[2018-09-24 13:17] LABS: Anisocytosis Present; Hypochromasia Present
--- NOTE | 2018-09-24 13:57 | Wound Consultation ---
Date of Consultation September 24, 2018 Assessment & Plan (1) Dermatitis associated with incontinence: Apply Silvadene twice daily to perineum and buttocks. This will help with pain. Continue with antifungal powder. (2) Pressure ulcer of buttock, unstageable: Continue offloading. We will continue to monitor. Likely will need debridement at some point. Thank you for allowing me to participate in the care of this patient. Present on Admission?: Yes History of Present Illness Attending Physician: Hermann Dacosta MD This 88-year-old female admitted to the hospital with UTI, weakness, elevated INR and heme positive stool and was found to have chemical dermatitis of her perineum as well as unstageable pressure ulcers. Patient said of her chair yesterday morning. She reports she had been feeling weaker than usual. She was brought to the ER and admitted. She is currently on Rocephin for UTI. She did not tolerate antifungal cream due to burning. Allergies Allergy/AdvReac Type Severity Reaction Status Date / Time morphine Allergy Unknown Verified 09/23/18 19:31 codeine AdvReac Unknown UPSET Verified 09/23/18 19:40 STOMACH Home Medications Home Medications Medication Instructions Recorded Confirmed Type acetaminophen [Tylenol Extra 500 mg PO QID PRN 09/23/18 09/23/18 History Strength] atorvastatin [Lipitor] 20 mg PO HS 09/23/18 09/23/18 History cholecalciferol (vitamin D3) 1,000 unit PO HS 09/23/18 09/23/18 History [Vitamin D3] furosemide 20 mg PO DAILY 09/23/18 09/23/18 History glipizide 5 mg PO BID 09/23/18 09/23/18 History lisinopril 2.5 mg PO HS 09/23/18 09/23/18 History metoprolol succinate [Toprol XL] 50 mg PO HS 09/23/18 09/23/18 History potassium chloride 10 meq PO DAILY 09/23/18 09/23/18 History tramadol 50 mg PO Q6H PRN 09/23/18 09/23/18 History warfarin [Coumadin] 2 mg PO UD 09/23/18 09/23/18 History Patient History Medical History Hypertension Family History Other Family history non-contributory Social History Communication Ability: Effective Beliefs That Will Affect Care: None Current Living Situation: Alone Other Information That Helps Us Care for You: No Feels Safe at Home: Yes Safety Concerns: Feels Safe At This Time Smoking Status: Former smoker Hx Alcohol Use: No Hx Substance Use: No Review of Systems 10 point review of systems negative except per HPI Physical Exam Vital Signs (Past 24 Hours): Last Vital Signs Temp 36.3 C L 09/24/18 07:58 Pulse 79 09/24/18 07:58 Resp 20 09/24/18 07:58 BP 135/77 09/24/18 07:58 Pulse Ox 100 09/24/18 07:58 Constitutional: WD/WN, vitals as above Respiratory: normal respiratory effort, lungs clear to auscultation Cardiovascular: RRR, no murmur, no edema Gastrointestinal (Abdomen): normal bowel sounds, soft, nontender, no hepatosplenomegaly Skin: Perineum is very erythematous. There does appear to be a few small lesions that are unstageable at this point. Patient was in too much pain to tolerate significant exam. Neurologic: awake; not confused Psychiatric: A+Ox3, euthymic affect
[2018-09-24] MEDS: SILVER SULFADIAZINE 1% CR 50 GM JAR EXT SCH ×2 (14:11→20:23)
--- NOTE | 2018-09-24 18:53 | Hospitalist Progress Note ---
Date of Service September 24, 2018 Assessment & Plan (1) Weakness: 88-year-old female who presents with ambulatory dysfunction, fall, found to have urinary tract infection, possible dehydration, decubitus ulcer and also ongoing fungal infection and trace Hemoccult positive with anemia. Ambulatory dysfunction. -history of falls at home -evaluated by physical therapy and recommend [facility] facility with continued rehabilitation Anemia -History of duodenal ulcers in the past, on Coumadin. History of hemorrhoids. Trace Hemoccult positive in ER -Hemoglobin 9.8 on admission and INR supratherapeutic as 5.1 -repeat Hgb stable between 8.3 to 8.4 and INR have been reversed by vitamin K a nd INR is 1.6 -no acute gastroenterology service interventions at this time -on IV pantoprazole, if CBC remains stable then can consider to discontinue IV pantoprazole drip -normal vitamin B12 -low folic acid level of 2, will give folic acid supplements daily -low iron levels, will give venofer IV on 09/24/18 for iron deficiency and continue with daily iron supplements Diabetes mellitus with early peripheral vascular disease and peripheral neuropathy HbA1c 7.3 -Hold glipizide -The patient is on insulin sliding scale Venous insufficiency with denuded skin bilateral lower legs, risk for cutaneous breakdown, ulceration, present on admission Painful onychomycosis. -seen by podiatry on 09/24/18: Debridement of mycotic nails; continued offloading devices as seen at bedside with heel protectors and bandaging. regular podiatry follow up Fungal infection intertrigo present on admission Dermatitis associated with incontinence -seen by wound care team -Apply Silvadene twice daily to perineum and buttocks. This will help with pain. Continue with antifungal powder. Pressure ulcer of buttock, unstageable, present on admission -seen by wound care team -Continue offloading. Possible urinary tract infection -urine culture with Escherichia coli, continue ceftriaxone Acute kidney injury on chronic kidney disease stage III -admission creatinine 1.6 -trended down to 1.4 with IV fluids which appears to be patient's baseline on records from 2016 History of right-sided heart failure -on Lasix 20 mg p.o. daily, on lisinopril and Toprol-XL History of coronary artery disease -on statin and Toprol-XL. History of hypertension - Continue lisinopril and Toprol-XL History of diabetes mellitus History of pulmonary embolism and deep venous thrombosis, -has IVC filter -admission INR was supratherapeutic 5.1 and then reversed -INR currently 1.6 -will give coumadin osteoarthritis -Pain meds as needed. Deep vein thrombosis prophylaxis: will resume coumadin, will give heparin subcutaneous until INR is therapeutic to goal of 2 to 3 Code status level 3. (Full NO MECHANICAL VENTILATION) Subjective Patient currently sleeping. Was seen and examined earlier today with nurse. Skin exam was performed. Patient reporting generalized weakness. denied chest pain or shortness of breath. Physical Exam Vital Signs (Past 24 Hours): Last Vital Signs Temp 36.3 C L 09/24/18 15:00 Pulse 81 09/24/18 15:00 Resp 20 09/24/18 15:00 BP 116/78 09/24/18 15:00 Pulse Ox 98 09/24/18 15:00 Constitutional: WD/WN, vitals as above Eyes: PERRL, conjunctivae normal, anicteric sclerae EOM intact bilaterally ENMT: external ear and nose normal, oropharynx normal Neck: trachea midline, no thyromegaly Respiratory: normal respiratory effort, lungs clear to auscultation Cardiovascular: RRR, no murmur, no edema Gastrointestinal (Abdomen): Inspection/Auscultation: + visible herniation Percussion/Palpation: abdomen soft (bowel sounds present) Musculoskeletal: Spine: + sacral erythema (Pressure ulcer of buttock, unsta geable) Extremities: + lower extremity abnormal to inspection (denuded skin bilateral lower legs) Skin: + rash (Fungal infection of intertrigo under breast and groin) Neurologic: PERRL, EOMI, accommodation nl, no face palsy, no dysarthria Psychiatric: Orientation: alert and oriented x 3
[2018-09-24] MEDS ORDERED: IRON SUCROSE 100 MG in 0.9 % SODIUM CHLORIDE 100 ML IV ONE (19:15)
[2018-09-24] MEDS ORDERED: WARFARIN SOD 2 MG TAB PO STA (19:26)
[2018-09-24] MEDS: FOLIC ACID 1 MG TAB PO SCH (20:19)
[2018-09-24] MEDS: HEPARIN SOD 5,000 UNIT/0.5 ML VIAL SQ SCH (20:21)
[2018-09-24] MEDS: METOPROLOL SUCC 50MG EXT REL TAB PO SCH (20:24)
[2018-09-24] MEDS: ATORVASTATIN 20 MG TAB PO SCH (20:24)
[2018-09-24] MEDS: LISINOPRIL 2.5 MG TAB PO SCH (20:25)
[2018-09-24] MEDS: CHOLECALCIFEROL 1,000 UNITS TAB PO SCH (20:25)
[2018-09-24] MEDS: cefTRIAXone SODIUM 1,000 MG in DEXTROSE 5% 50 ML IV SCH (20:26)
[2018-09-24] MEDS ORDERED: FLUCONAZOLE SUSP 100 MG/10 ML UDP PO SCH (21:00)
[2018-09-25] MEDS: PANTOprazole 40 MG in DEXTROSE 5% 100 ML IV SCH ×4 (02:12→18:13)
[2018-09-25 06:39] LABS: Eosinophils # (auto) 0.04 K/uL (0-0.5); Eosinophils % (auto) 0.4 %; Hematocrit (blood only) 29.1 % (37-47); Hemoglobin 8.6 g/dL (12.0-16.0); Immature Granulocytes # (auto) 0.05 K/uL (0.00-0.02); Immature Granulocytes % (auto) 0.5 %; Lymphocytes % (auto) 9.6 %; Mean Corpuscular Hgb Conc 29.6 g/dL (32-36); Mean Corpuscular Volume 79.9 fL (80-100); Mean Platelet Volume 8.5 fL (7.4-10.4); Monocytes # (auto) 0.27 K/uL (0.11-0.59); Monocytes % (auto) 2.6 %; Neutrophils # (auto) 9.06 K/uL (1.4-6.5); Neutrophils % (auto) 86.9 %; Platelet Count 368 K/uL (130-400); RDW Coefficient of Variation 20.5 % (11.5-14.5); RDW Standard Deviation 58.7 fL (36.4-46.3); Red Blood Count 3.64 M/uL (4.2-5.4); White Blood Count 10.42 K/uL (4.8-10.8)
[2018-09-25 06:52] LABS: INR 1.3 (0.9-1.1); Prothrombin Time 13.5 Seconds (9.0-12.0)
[2018-09-25 07:09] LABS: Albumin Level 1.5 gm/dl (3.4-5.0); BUN Creatinine Ratio 21.3 (10-20); Calcium 7.4 mg/dl (8.5-10.1); Creatinine Clr Calc Pharmacy 28.1 ml/min; Est GFR (African American) 38.8; Est GFR (Non-African American) 33.5; Potassium 3.7 mmol/L (3.5-5.1)
[2018-09-25 07:16] LABS: Anisocytosis Present; Spherocytes Occasional; Tear Drop Cells Occasional
[2018-09-25 07:22] LABS: Albumin Globulin Ratio 0.3 (0.9-2); Bilirubin,Total 0.2 mg/dl (0.2-1); Globulin 4.4 gm/dl (2.5-4.0); Total Protein 5.9 gm/dl (6.4-8.2)
[2018-09-25] MEDS: HEPARIN SOD 5,000 UNIT/0.5 ML VIAL SQ SCH ×2 (08:23→22:11)
[2018-09-25] MEDS: FUROSEMIDE 20 MG TAB PO SCH (08:23)
[2018-09-25] MEDS: POTASSIUM CHLORIDE 10 MEQ TABCR PO SCH (08:23)
[2018-09-25] MEDS: FERROUS SULFATE 325 MG TAB PO SCH (08:24)
[2018-09-25] MEDS: FOLIC ACID 1 MG TAB PO SCH (08:24)
[2018-09-25] MEDS: SILVER SULFADIAZINE 1% CR 50 GM JAR EXT SCH ×2 (08:24→22:05)
[2018-09-25] MEDS: NYSTATIN POWDER 15GM BTL EXT SCH ×2 (08:24→22:10)
[2018-09-25] MEDS: INSULIN ASPART 100 UNITS/ML 3 ML PEN SC SCH ×4 (08:25→22:12)
[2018-09-25] MEDS: TRAMADOL HCL 50 MG TABLET PO PRN (08:33)
--- NOTE | 2018-09-25 14:40 | Wound Progress Note ---
Date of Service September 25, 2018 Assessment & Plan (1) Pressure ulcer of buttock, unstageable: Wounds are improving. There is still unstageable at this time though will likely be stage I or II.. Recommend continue offloading. (2) Dermatitis associated with incontinence: Definitely improved with Silvadene twice daily. Would continue for 2-3 more days and then switch to barrier cream. Please not hesitate to call with any questions. Thank you for allowing me to part spent in the care of this patient. Subjective 88-year old female admitted with UTI, elevated INR and heme positive stool who I am following with chemical dermatitis in the perineum and unstageable pressure ulcers. Patient states the pain is significantly improved now that she is been on the Silvadene for a day. She denies fevers, chills and has no new complaints. Review of Systems All systems reviewed & are unremarkable except as noted in HPI & below Physical Exam Vital Signs (Past 24 Hours): Last Vital Signs Temp 36.3 C L 09/25/18 07:35 Pulse 67 09/25/18 07:35 Resp 20 09/25/18 07:35 BP 105/60 09/25/18 07:43 Pulse Ox 99 09/25/18 07:35 Skin: Perineum still erythematous but is improved. There are a few small lesions in the perineum that are still unstageable at this time peer Neurologic: awake; not confused Psychiatric: A+Ox3, euthymic affect
[2018-09-25] MEDS ORDERED: WARFARIN SOD 2 MG TAB PO SCH (16:00)
--- NOTE | 2018-09-25 17:39 | Hospitalist Progress Note ---
Date of Service September 25, 2018 Assessment & Plan (1) Weakness: 88-year-old female who presents with ambulatory dysfunction, fall, found to have urinary tract infection, possible dehydration, decubitus ulcer and also ongoing fungal infection and trace Hemoccult positive with anemia. Ambulatory dysfunction. -history of falls at home -evaluated by physical therapy and recommend longterm facility with continued rehabilitation Anemia -History of duodenal ulcers in the past, on Coumadin. History of hemorrhoids. 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 -seen by podiatry on 09/24/18: Debridement of mycotic nails; continued offloading devices as seen at bedside with heel protectors and bandaging. regular podiatry follow up Fungal infection intertrigo present on admission Dermatitis associated with incontinence -seen by wound care team -improved with Silvadene twice daily. Would continue for 2-3 more days and then switch to barrier cream. Continue with antifungal powder. Pressure ulcer of buttock, unstageable, present on admission -seen by wound care team -Continue offloading. 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 daily, on lisinopril and Toprol-XL History of coronary artery disease -on statin and Toprol-XL. History of hypertension - Continue lisinopril and Toprol-XL History of diabetes mellitus History of pulmonary embolism and deep venous thrombosis, -has IVC filter -admission INR was supratherapeutic 5.1 and then reversed and was 1.6 and then coumadin was resumed on 09/24/18 as 2 mg daily -INR currently 1.3 -continue coumadin 2 mg daily osteoarthritis -Pain meds as needed. Deep vein thrombosis prophylaxis: continue coumadin, will give heparin subcutaneous until INR is therapeutic to goal of 2 to 3 Code status level 3. (Full NO MECHANICAL VENTILATION) Subjective Patient seen and examined earlier in bed. denied chest pain or shortness of breath. she again could not sit up under her own power during physical exam Physical Exam Vital Signs (Past 24 Hours): Last Vital Signs Temp 36.4 C L 09/25/18 15:11 Pulse 74 09/25/18 15:11 Resp 19 09/25/18 15:11 BP 105/75 09/25/18 15:11 Pulse Ox 98 09/25/18 15:11 Constitutional: WD/WN, vitals as above Eyes: PERRL, conjunctivae normal, anicteric sclerae EOM intact bilaterally ENMT: external ear and nose normal, oropharynx normal Neck: trachea midline, no thyromegaly Respiratory: normal respiratory effort, lungs clear to auscultation Cardiovascular: RRR, no murmur, no edema Gastrointestinal (Abdomen): Inspection/Auscultation: + visible herniation Percussion/Palpation: abdomen soft (bowel sounds present) Musculoskeletal: Spine: + sacral erythema (Pressure ulcer of buttock, unstageable) Extremities: + lower extremity abnormal to inspection (denuded skin bilateral lower legs) Skin: + rash (Fungal infection of intertrigo under breast and groin) Neurologic: PERRL, EOMI, accommodation nl, no face palsy, no dysarthria Psychiatric: Orientation: alert and oriented x 3
[2018-09-25] MEDS: cefTRIAXone SODIUM 1,000 MG in DEXTROSE 5% 50 ML IV SCH (22:02)
[2018-09-25] MEDS: METOPROLOL SUCC 50MG EXT REL TAB PO SCH (22:05)
[2018-09-25] MEDS: CHOLECALCIFEROL 1,000 UNITS TAB PO SCH (22:08)
[2018-09-25] MEDS: LISINOPRIL 2.5 MG TAB PO SCH (22:08)
[2018-09-25] MEDS: ATORVASTATIN 20 MG TAB PO SCH (22:10)
[2018-09-26] MEDS: INSULIN ASPART 100 UNITS/ML 3 ML PEN SC SCH ×4 (07:55→20:22)
[2018-09-26] MEDS: HEPARIN SOD 5,000 UNIT/0.5 ML VIAL SQ SCH (07:56)
[2018-09-26] MEDS: FOLIC ACID 1 MG TAB PO SCH (07:58)
[2018-09-26] MEDS: FERROUS SULFATE 325 MG TAB PO SCH (07:58)
[2018-09-26] MEDS: NYSTATIN POWDER 15GM BTL EXT SCH ×2 (07:58→20:15)
[2018-09-26] MEDS: FUROSEMIDE 20 MG TAB PO SCH (07:58)
[2018-09-26] MEDS: POTASSIUM CHLORIDE 10 MEQ TABCR PO SCH (07:58)
[2018-09-26] MEDS: SILVER SULFADIAZINE 1% CR 50 GM JAR EXT SCH ×2 (07:59→20:16)
[2018-09-26] MEDS: TRAMADOL HCL 50 MG TABLET PO PRN ×2 (08:06→14:12)
[2018-09-26 09:34] LABS: Basophils # (auto) 0.01 K/uL (0-0.2); Basophils % (auto) 0.1 %; Eosinophils # (auto) 0.17 K/uL (0-0.5); Eosinophils % (auto) 1.8 %; Hematocrit (blood only) 27.4 % (37-47); Hemoglobin 8.1 g/dL (12.0-16.0); Immature Granulocytes # (auto) 0.06 K/uL (0.00-0.02); Immature Granulocytes % (auto) 0.6 %; Lymphocytes # (auto) 1.44 K/uL (1.2-3.4); Lymphocytes % (auto) 15.5 %; Mean Corpuscular Hgb Conc 29.6 g/dL (32-36); Mean Corpuscular Volume 81.1 fL (80-100); Mean Platelet Volume 8.2 fL (7.4-10.4); Monocytes # (auto) 0.33 K/uL (0.11-0.59); Monocytes % (auto) 3.6 %; Neutrophils # (auto) 7.26 K/uL (1.4-6.5); Neutrophils % (auto) 78.4 %; Platelet Count 395 K/uL (130-400); RDW Coefficient of Variation 21.1 % (11.5-14.5); RDW Standard Deviation 61.1 fL (36.4-46.3); Red Blood Count 3.38 M/uL (4.2-5.4); White Blood Count 9.27 K/uL (4.8-10.8)
[2018-09-26 09:45] LABS: Prothrombin Time 19.9 Seconds (9.0-12.0)
[2018-09-26 09:56] LABS: Anisocytosis Present
--- NOTE | 2018-09-26 12:12 | Hospitalist Progress Note ---
Date of Service September 26, 2018 Assessment & Plan (1) Weakness: 88-year-old female who presents with ambulatory dysfunction, fall, found to have urinary tract infection, possible dehydration, decubitus ulcer and also ongoing fungal infection and trace Hemoccult positive with anemia. Ambulatory dysfunction. -history of falls at home -evaluated by physical therapy and recommend detention facility with continued rehabilitation Anemia -History of duodenal ulcers in the past, on Coumadin. History of hemorrhoids. 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 -seen by podiatry on 09/24/18: Debridement of mycotic nails; continued offloading devices as seen at bedside with heel protectors and bandaging. regular podiatry follow up Fungal infection intertrigo present on admission Dermatitis associated with incontinence -seen by wound care team -improved with Silvadene twice daily. Would continue for 1-2 more days and then switch to barrier cream. Continue with antifungal powder. Pressure ulcer of buttock, unstageable, present on admission -seen by wound care team -Continue offloading. 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 daily, on lisinopril and Toprol-XL History of coronary artery disease -on statin and Toprol-XL. History of hypertension - Continue lisinopril and Toprol-XL History of diabetes mellitus History of pulmonary embolism and deep venous thrombosis, -has IVC filter -admission INR was supratherapeutic 5.1 and then reversed and was 1.6 and then coumadin was resumed on 09/24/18 as 2 mg daily -INR currently 1.3 on 09/25/18 and continued coumadin 2 mg daily -INR is 2 on 09/26/18 and will give coumadin 1.5 mg daily osteoarthritis -Pain meds as needed. Deep vein thrombosis prophylaxis: anticoagulated on coumadin Code status level 3. (Full NO MECHANICAL VENTILATION) Disposition: awaiting insurance authorization for detention facility Subjective denied chest pain or shortness of breath. legs in waffle boots. patient very sedentary and answers questions while laying flat on bed to resume sleep Physical Exam Vital Signs (Past 24 Hours): Last Vital Signs Temp 36.7 C 09/26/18 07:21 Pulse 77 09/26/18 07:21 Resp 18 09/26/18 07:21 BP 108/67 09/26/18 07:21 Pulse Ox 99 09/26/18 07:21 Constitutional: WD/WN, vitals as above Eyes: PERRL, conjunctivae normal, anicteric sclerae EOM intact bilaterally ENMT: external ear and nose normal, oropharynx normal Neck: trachea midline, no thyromegaly Respiratory: normal respiratory effort, lungs clear to auscultation Cardiovascular: RRR, no murmur, no edema Gastrointestinal (Abdomen): Inspection/Auscultation: + visible herniation Percussion/Palpation: abdomen soft (bowel sounds present) Musculoskeletal: Spine: + sacral erythema (Pressure ulcer of buttock, unstageable) Extremities: + lower extremity abnormal to inspection (denuded skin bilateral lower legs) Skin: + rash (Fungal infection of intertrigo under breast and groin) Neurologic: PERRL, EOMI, accommodation nl, no face palsy, no dysarthria Psychiatric: Orientation: alert and oriented x 3
[2018-09-26] MEDS ORDERED: SODIUM CHLORIDE 0.9% 1000ML 250 ML IV ONE (15:07)
[2018-09-26] MEDS ORDERED: WARFARIN SOD 0.5 MG TAB PO SCH (16:00)
[2018-09-26] MEDS: WARFARIN SOD 1 MG TAB PO SCH (16:26)
[2018-09-26] MEDS: cefTRIAXone SODIUM 1,000 MG in DEXTROSE 5% 50 ML IV SCH (20:14)
[2018-09-26] MEDS: ATORVASTATIN 20 MG TAB PO SCH (20:15)
[2018-09-26] MEDS: CHOLECALCIFEROL 1,000 UNITS TAB PO SCH (20:17)
[2018-09-26] MEDS: LISINOPRIL 2.5 MG TAB PO SCH (20:17)
[2018-09-26] MEDS: METOPROLOL SUCC 50MG EXT REL TAB PO SCH (20:18)
[2018-09-26] MEDS ORDERED: SODIUM CHLORIDE 0.9% 500 ML IV SCH (23:15)
[2018-09-27 04:09] LABS: INR 2.8 (0.9-1.1); Prothrombin Time 26.3 Seconds (9.0-12.0)
[2018-09-27 04:17] LABS: BUN Creatinine Ratio 12.3 (10-20); Calcium 7.1 mg/dl (8.5-10.1); Creatinine Clr Calc Pharmacy 16.7 ml/min; Est GFR (African American) 20.7; Est GFR (Non-African American) 17.9; Potassium 3.4 mmol/L (3.5-5.1)
[2018-09-27] MEDS: SODIUM CHLORIDE 0.9% 1000ML 1,000 ML IV SCH ×2 (07:42→20:05)
[2018-09-27] MEDS: ONDANSETRON INJ 2 MG/ML 2 ML VIAL IV PRN ×2 (09:08→16:48)
[2018-09-27] MEDS: SILVER SULFADIAZINE 1% CR 50 GM JAR EXT SCH (09:09)
[2018-09-27] MEDS: NYSTATIN POWDER 15GM BTL EXT SCH ×2 (09:09→20:08)
[2018-09-27] MEDS: INSULIN ASPART 100 UNITS/ML 3 ML PEN SC SCH ×4 (09:14→20:07)
[2018-09-27] MEDS: FOLIC ACID 1 MG TAB PO SCH (12:26)
[2018-09-27] MEDS: POTASSIUM CHLORIDE 10 MEQ TABCR PO SCH (12:26)
[2018-09-27] MEDS: FERROUS SULFATE 325 MG TAB PO SCH (12:26)
--- NOTE | 2018-09-27 15:09 | Hospitalist Progress Note ---
Date of Service September 27, 2018 Assessment & Plan (1) Weakness: 88-year-old female who presents with ambulatory dysfunction, fall, found to have urinary tract infection, possible dehydration, decubitus ulcer and also ongoing fungal infection and trace Hemoccult positive with anemia. Ambulatory dysfunction. -history of falls at home -evaluated by physical therapy and recommend [facility] facility with continued rehabilitation Anemia -History of duodenal ulcers in the past, on Coumadin. History of hemorrhoids. 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 -seen by podiatry on 09/24/18: Debridement of mycotic nails; continued offloading devices as seen at bedside with heel protectors and bandaging. regular podiatry follow up Fungal infection intertrigo present on admission Dermatitis associated with incontinence -seen by wound care team and skin was given Silvadene twice daily with improvements -as of 09/27/18 stop the Silvadene and switch to barrier cream alone. Continue with antifungal powder. Pressure ulcer of buttock, unstageable, present on admission -seen by wound care team -Continue offloading. 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 -hold off lisinopril and diuretic due to Tricia History of coronary artery disease -on statin and Toprol-XL. History of pulmonary embolism and deep venous thrombosis, -has IVC filter -admission INR was supratherapeutic 5.1 and then reversed and was 1.6 and then coumadin was resumed on 09/24/18 as 2 mg daily -INR currently 1.3 on 09/25/18 and continued coumadin 2 mg daily -INR is 2 on 09/26/18 and will give coumadin 1.5 mg daily -INR is 2.8 on 09/27/18 and will give coumadin 1 mg daily osteoarthritis -denies pain Deep vein thrombosis prophylaxis: anticoagulated on coumadin Code status level 3. (Full NO MECHANICAL VENTILATION) Disposition: awaiting insurance authorization for [facility] facility Subjective denied chest pain or shortness of breath. legs in waffle boots. denies pain. denies lightheadedness. Physical Exam Vital Signs (Past 24 Hours): Last Vital Signs Temp 36.4 C L 09/27/18 07:19 Pulse 84 09/27/18 07:19 Resp 18 09/27/18 07:19 BP 91/55 L 09/27/18 07:19 Pulse Ox 99 09/27/18 07:19 Constitutional: WD/WN, vitals as above Eyes: PERRL, conjunctivae normal, anicteric sclerae EOM intact bilaterally ENMT: external ear and nose normal, oropharynx normal Neck: trachea midline, no thyromegaly Respiratory: normal respiratory effort, lungs clear to auscultation Cardiovascular: RRR, no murmur, no edema Gastrointestinal (Abdomen): Inspection/Auscultation: + visible herniation Percussion/Palpation: abdomen soft (bowel sounds present) Musculoskeletal: Spine: + sacral erythema (Pressure ulcer of buttock, unstageable) Extremities: + lower extremity abnormal to inspection (denuded skin bilateral lower legs) Skin: + rash (Fungal infection of intertrigo under breast and groin) Neurologic: PERRL, EOMI, accommodation nl, no face palsy, no dysarthria Psychiatric: Orientation: alert and oriented x 3
[2018-09-27] MEDS: WARFARIN SOD 1 MG TAB PO SCH (18:28)
[2018-09-27] MEDS: cefTRIAXone SODIUM 1,000 MG in DEXTROSE 5% 50 ML IV SCH (20:05)
[2018-09-27] MEDS: CHOLECALCIFEROL 1,000 UNITS TAB PO SCH (20:10)
[2018-09-27] MEDS: METOPROLOL SUCC 50MG EXT REL TAB PO SCH (20:10)
[2018-09-27] MEDS: ATORVASTATIN 20 MG TAB PO SCH (20:10)
[2018-09-27] MEDS: TRAMADOL HCL 50 MG TABLET PO PRN (20:13)
[2018-09-28 00:45] LABS: Hematocrit (blood only) 27.9 % (37-47); Hemoglobin 8.1 g/dL (12.0-16.0)
[2018-09-28 08:19] LABS: Albumin Level 1.4 gm/dl (3.4-5.0); BUN Creatinine Ratio 9.9 (10-20); Calcium 7.4 mg/dl (8.5-10.1); Creatinine Clr Calc Pharmacy 12.1 ml/min; Est GFR (African American) 13.4; Est GFR (Non-African American) 11.6; Potassium 3.8 mmol/L (3.5-5.1)
[2018-09-28 08:22] LABS: Albumin Globulin Ratio 0.3 (0.9-2); Bilirubin,Total 0.1 mg/dl (0.2-1); Globulin 4.1 gm/dl (2.5-4.0); Total Protein 5.5 gm/dl (6.4-8.2)
[2018-09-28 08:41] LABS: Prothrombin Time 37.6 Seconds (9.0-12.0)
[2018-09-28 08:50] LABS: INR 4.1 (0.9-1.1)
[2018-09-28] MEDS: FOLIC ACID 1 MG TAB PO SCH (09:26)
[2018-09-28] MEDS: NYSTATIN POWDER 15GM BTL EXT SCH ×2 (09:26→21:18)
[2018-09-28] MEDS: POTASSIUM CHLORIDE 10 MEQ TABCR PO SCH (09:26)
[2018-09-28] MEDS: FERROUS SULFATE 325 MG TAB PO SCH (09:26)
[2018-09-28] MEDS: INSULIN ASPART 100 UNITS/ML 3 ML PEN SC SCH ×4 (09:31→21:59)
[2018-09-28 11:03] LABS: Appearance Urine Turbid (Clear); Blood Urine 3+ (Negative); Color Urine Orange; Glucose Urine UA Trace (Negative); Ketones Urine 1+ (Negative); Leukocyte Esterase Urine 1+ (Negative); Nitrite Urine Negative (Negative); Protein Urine 2+ (Negative); Specific Gravity Urine 1.027 (1.000-1.030); Urobilinogen Urine Negative (Negative)
[2018-09-28 11:40] LABS: Bilirubin Urine Negative (Negative); Ictotest Urine Negative (Negative)
[2018-09-28 11:43] LABS: Amorphous Sediment Urine Present (None Prsent); Bacteria Urine Negative (Negative); Epithelial Cell Urine >30 /lpf (0-5); RBC Urine >30 /hpf (0-4); WBC Urine 0-5 /hpf (0-5)
[2018-09-28] MEDS: SODIUM CHLORIDE 0.9% 1000ML 1,000 ML IV SCH ×2 (11:46→21:17)
--- NOTE | 2018-09-28 14:24 | Hospitalist Progress Note ---
Date of Service September 28, 2018 Assessment & Plan (1) Weakness: 88-year-old female who presents with ambulatory dysfunction, fall, found to have urinary tract infection, possible dehydration, decubitus ulcer and also ongoing fungal infection and trace Hemoccult positive with anemia. Ambulatory dysfunction. -history of falls at home -evaluated by physical therapy and recommend longterm facility with continued rehabilitation Anemia, Multifactorial Microcytic anemia consistent with iron deficiency anemia -History of duodenal ulcers in the past, on Coumadin. History of hemorrhoids. 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 -seen by podiatry on 09/24/18: Debridement of mycotic nails; continued offloading devices as seen at bedside with heel protectors and bandaging. regular podiatry follow up Fungal infection intertrigo present on admission Dermatitis associated with incontinence -seen by wound care team and skin was given Silvadene twice daily with improvements -as of 09/27/18 stop the Silvadene and switch to barrier cream alone. Continue with antifungal powder. Pressure ulcer of buttock, unstageable, present on admission -seen by wound care team -Continue offloading. Possible urinary tract infection vs colonization -admission urine culture with Escherichia coli, ceftriaxone was started on 09/24/18 and last dose was on 09/27/18, repeat urine analysis on 09/28/18 with no bacteria Acute kidney injury on chronic kidney disease stage III -admission creatinine 1.6 was given IV fluids -trended down to 1.4 and had remained stable from 09/24/18 to 09/25/18 with IV fluids which appears to be patient's baseline on records from 2016 -however creatinine is 2.34 on 09/27/18, and despite IV fluids the creatinine has increased to 3.35, have held the furosemide and lisinopril already, nephrology also recommended to hold the metoprolol -rodriguez resumed for monitoring output chronic R sided heart failure with preserved EF -because of FRANKLYN, will hold off on Lasix and Lisinopril and Toprol-XL History of hypertension Hypotension -during this hospital stay, patient has not had any high elevations of blood pressures -general blood pressures have been low normotensive with possible suboptimal readings when blood pressure being recorded when laying flat. have encouraged blood pressures to be taken when patient sitting upright -normal TSH levels 09/23/18 -normal cortisol levels levels 09/28/18 History of coronary artery disease -on statin and Toprol-XL. Hypoalbumineria -give BOOST supplements with meals History of pulmonary embolism and deep venous thrombosis, -has IVC filter -admission INR was supratherapeutic 5.1 and then reversed and was 1.6 and then coumadin was resumed on 09/24/18 as 2 mg daily -INR currently 1.3 on 09/25/18 and continued coumadin 2 mg daily -INR is 2 on 09/26/18 and will give coumadin 1.5 mg daily -INR is 2.8 on 09/27/18 and will give coumadin 1 mg daily -INR is 4.1 on 09/28/18, hold coumadin - CBC stable as 8.1 osteoarthritis -denies pain Deep vein thrombosis prophylaxis: supratherapeutic INR from coumadin Code status level 3. (Full NO MECHANICAL VENTILATION) Disposition: awaiting insurance authorization for longterm facility Subjective denied chest pain or shortness of breath. legs in waffle boots. denies pain. denies lightheadedness despite generally low blood pressure readings. has been getting IV fluids Physical Exam Vital Signs (Past 24 Hours): Last Vital Signs Temp 36.4 C L 09/28/18 06:54 Pulse 90 09/28/18 12:08 Resp 17 09/28/18 06:54 BP 109/63 09/28/18 12:08 Pulse Ox 98 09/28/18 06:54 Constitutional: WD/WN, vitals as above Eyes: PERRL, conjunctivae normal, anicteric sclerae EOM intact bilaterally ENMT: external ear and nose normal, oropharynx normal Neck: trachea midline, no thyromegaly Respiratory: normal respiratory effort, lungs clear to auscultation Cardiovascular: RRR, no murmur, no edema Gastrointestinal (Abdomen): Inspection/Auscultation: + visible herniation Percussion/Palpation: abdomen soft (bowel sounds present) Musculoskeletal: Spine: + sacral erythema (Pressure ulcer of buttock, unstageable) Extremities: + lower extremity abnormal to inspection (denuded skin bilateral lower legs) Skin: + rash (Fungal infection of intertrigo under breast and groin) Neurologic: PERRL, EOMI, accommodation nl, no face palsy, no dysarthria Psychiatric: Orientation: alert and oriented x 3
[2018-09-28 17:25] LABS: Cdiff Antigen Negative; Cdiff Toxin A+B Negative Cdiff Toxin (Negative)
--- NOTE | 2018-09-28 18:44 | Nephrology Consultation ---
Date of Consultation September 28, 2018 Assessment & Plan (1) FRANKLYN (acute kidney injury): Patient with FRANKLYN likely due to ischemic ATN in setting of hypotension for several days. Baseline cr 1.4-1.6. Cr now at 3.3 and anuric. UA suggestive of ATN. She had a rodriguez until just few days ago. Would get a renal U/S in the morning to ensure no obstruction. Management of ATN is supportive. Agree with N/Saline at 100ml/hr. I held metoprolol. Monitor BMP daily. Avoid nephrotoxins. No indication for HD today. Will monitor daily for HD need. (2) Anemia: Patient with anemia of multifactorial etiology including possibly GI bleed and anemia of renal disease. Monitor and transfuse as needed. We can obtain iron studies including tibc and ferritin. She might benefit from CASIE History of Present Illness Reason for Consultation: FRANKLYN on CKD Requesting Physician: Hermann Dacosta MD Attending Physician: Hermann Dacosta MD History of Present Illness This is 88yoF with PMH DM, HTN, DVT on coumadin and CKD stage 3 with baseline cr 1.4 in 05/2017. SHe was admitted on 09/23/18 with weakness and fall. I have been asked to evaluate her for FRANKLYN. On admission her creatinine was 1.6 and and remained stable until yesterday when it jumped to 2.3 and up to 3.3 today. Her urine output has also dropped off significantly and she is now anuric. Of note she has been hypotensive for 48hrs with SBP in the 90's. She otherwise reports some improvement. She denied SOB No vomiting or constipation or diarrhoea. She denies leg edema. She has not had NSAIDs recently. She had a rodriguez which was removed recently. Allergies Allergy/AdvReac Type Severity Reaction Status Date / Time morphine Allergy Unknown Verified 09/23/18 19:31 codeine AdvReac Unknown UPSET Verified 09/23/18 19:40 STOMACH Home Medications Home Medications Medication Instructions Recorded Confirmed Type acetaminophen [Tylenol Extra 500 mg PO QID PRN 09/23/18 09/23/18 History Strength] atorvastatin [Lipitor] 20 mg PO HS 09/23/18 09/23/18 History cholecalciferol (vitamin D3) 1,000 unit PO HS 09/23/18 09/23/18 History [Vitamin D3] furosemide 20 mg PO DAILY 09/23/18 09/23/18 History glipizide 5 mg PO BID 09/23/18 09/23/18 History lisinopril 2.5 mg PO HS 09/23/18 09/23/18 History metoprolol succinate [Toprol XL] 50 mg PO HS 09/23/18 09/23/18 History potassium chloride 10 meq PO DAILY 09/23/18 09/23/18 History tramadol 50 mg PO Q6H PRN 09/23/18 09/23/18 History warfarin [Coumadin] 2 mg PO UD 09/23/18 09/23/18 History Patient History Medical History Hypertension Family History Other Family history non-contributory Social History Communication Ability: Effective Beliefs That Will Affect Care: None Current Living Situation: Alone Other Information That Helps Us Care for You: No Feels Safe at Home: Yes Safety Concerns: Feels Safe At This Time Smoking Status: Former smoker Hx Alcohol Use: No Hx Substance Use: No Review of Systems All other systems were reviewed and negative except as noted in HPI Physical Exam Vital Signs (Past 24 Hours): Last Vital Signs Temp 36.6 C 09/28/18 15:19 Pulse 91 H 09/28/18 15:19 Resp 20 09/28/18 15:19 BP 138/82 09/28/18 15:19 Pulse Ox 99 09/28/18 15:19 Physical Exam: General exam: Obese female, Appears comfortable, no acute distress HEENT: Pupils are equal and reactive to light Neck: No JVD, neck is supple trachea is midline Respiratory system: Clear breath sounds bilaterally. Gastrointestinal: Abdomen is soft, non distended, non tender, bowel sounds are present CVS: Regular rate and rhythm. No murmurs, rubs or gallops Musculoskeletal: No joint or muscle tenderness Extremities: Non tender, no edema, peripheral pulses are present Neuro: Oriented, no tremors, no focal neurological deficits Skin: No rashes Results & Data Laboratory Results Urine shows: >30rbc/hpf, amorphous sediment (1) Anemia Anemia type: unspecified type Qualified Code(s): D64.9 - Anemia, unspecified
[2018-09-28] MEDS: ATORVASTATIN 20 MG TAB PO SCH (21:17)
[2018-09-28] MEDS: CHOLECALCIFEROL 1,000 UNITS TAB PO SCH (21:17)
[2018-09-29] MEDS: SODIUM CHLORIDE 0.9% 1000ML 1,000 ML IV SCH ×2 (06:16→18:08)
[2018-09-29 06:46] LABS: Basophils # (auto) 0.02 K/uL (0-0.2); Basophils % (auto) 0.2 %; Eosinophils # (auto) 0.34 K/uL (0-0.5); Eosinophils % (auto) 3.1 %; Hematocrit (blood only) 29.8 % (37-47); Hemoglobin 8.7 g/dL (12.0-16.0); Immature Granulocytes # (auto) 0.07 K/uL (0.00-0.02); Immature Granulocytes % (auto) 0.6 %; Lymphocytes # (auto) 1.42 K/uL (1.2-3.4); Lymphocytes % (auto) 12.8 %; Mean Corpuscular Hgb Conc 29.2 g/dL (32-36); Mean Corpuscular Volume 83.2 fL (80-100); Mean Platelet Volume 8.2 fL (7.4-10.4); Monocytes % (auto) 5.4 %; Neutrophils # (auto) 8.62 K/uL (1.4-6.5); Neutrophils % (auto) 77.9 %; Platelet Count 434 K/uL (130-400); RDW Coefficient of Variation 22.3 % (11.5-14.5); RDW Standard Deviation 65.1 fL (36.4-46.3); Red Blood Count 3.58 M/uL (4.2-5.4); White Blood Count 11.07 K/uL (4.8-10.8)
[2018-09-29 07:03] LABS: Prothrombin Time 43.7 Seconds (9.0-12.0)
[2018-09-29 07:08] LABS: INR 4.8 (0.9-1.1)
[2018-09-29 07:11] LABS: BUN Creatinine Ratio 9.5 (10-20); Calcium 7.7 mg/dl (8.5-10.1); Creatinine Clr Calc Pharmacy 11.4 ml/min; Est GFR (African American) 12.5; Est GFR (Non-African American) 10.8; Potassium 4.1 mmol/L (3.5-5.1)
[2018-09-29 07:28] LABS: Anisocytosis Present; Hypochromasia Present
[2018-09-29] MEDS: POTASSIUM CHLORIDE 10 MEQ TABCR PO SCH (07:31)
[2018-09-29] MEDS: FOLIC ACID 1 MG TAB PO SCH (07:31)
[2018-09-29] MEDS: FERROUS SULFATE 325 MG TAB PO SCH (07:32)
[2018-09-29] MEDS: NYSTATIN POWDER 15GM BTL EXT SCH ×2 (07:32→20:06)
--- NOTE | 2018-09-29 09:54 | Ultrasound Report ---
US renal/blad retro comp HISTORY: 88 years-old Female FRANKLYN ? obstructive uropathy acute kidney injury with possible obstructiv e uropathy COMPARISON: Abdominal ultrasound 06/13/2010 TECHNIQUE: Multiple real-time sonographic images of the kidneys and urinary bladder were obtained ass essing grayscale appearance and color flow FINDINGS: Study is limited secondary to patient body habitus and patient condition. Right kidney measures 9.2 cm in length. There is mild diffuse cortical thinning with increased echoge nicity of the kidney. There is an exophytic cyst of the superior pole right kidney, 4.2 x 3.3 x 4.3 c m. Mild nonspecific perinephric edema. No renal calculi or hydronephrosis. Cortical scarring about th e interpolar right kidney. The left kidney measures 10.2 cm in length. Mild nonspecific left perinephric stranding. Increased ec hogenicity of the left kidney is also noted with poor corticomedullary differentiation. Exophytic cys t of the inferior pole left kidney measures 1.6 x 1.7 cm. No renal calculi or hydronephrosis. Urinary bladder is decompressed with catheter in place. IMPRESSION: 1. No renal calculi or hydronephrosis. 2. Increased echogenicity of the bilateral kidneys is suggestive of chronic medical renal disease. 3. Cortical scarring noted about the interpolar right kidney. 4. Bilateral renal cysts. 5. Decompressed urinary bladder with catheter noted. The above report was generated using voice recognition software. It may contain grammatical, syntax o r spelling errors. Electronically signed by: Shay Govea M.D. 09/29/2018 9:53 AM
[2018-09-29] MEDS: ONDANSETRON INJ 2 MG/ML 2 ML VIAL IV PRN (09:58)
[2018-09-29] MEDS: INSULIN ASPART 100 UNITS/ML 3 ML PEN SC SCH ×4 (10:19→20:50)
--- NOTE | 2018-09-29 14:59 | Hospitalist Progress Note ---
Date of Service September 29, 2018 Assessment & Plan (1) Weakness: 88-year-old female who presents with ambulatory dysfunction, fall, found to have urinary tract infection, possible dehydration, decubitus ulcer and also ongoing fungal infection and trace Hemoccult positive with anemia. Ambulatory dysfunction. -history of falls at home -evaluated by physical therapy and recommend retirement facility with continued rehabilitation Anemia, Multifactorial Microcytic anemia consistent with iron deficiency anemia -History of duodenal ulcers in the past, on Coumadin. History of hemorrhoids. 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 -seen by podiatry on 09/24/18: Debridement of mycotic nails; continued offloading devices as seen at bedside with heel protectors and bandaging. regular podiatry follow up Fungal infection intertrigo present on admission Dermatitis associated with incontinence -seen by wound care team and skin was given Silvadene twice daily with improvements -as of 09/27/18 stop the Silvadene and switch to barrier cream alone. Continue with antifungal powder. Pressure ulcer of buttock, unstageable, present on admission -seen by wound care team -Continue offloading. Possible urinary tract infection vs colonization -admission urine culture with Escherichia coli, ceftriaxone was started on 09/24/18 and last dose was on 09/27/18, repeat urine analysis on 09/28/18 with no bacteria Acute kidney injury on chronic kidney disease stage III -admission creatinine 1.6 was given IV fluids -trended down to 1.4 and had remained stable from 09/24/18 to 09/25/18 with IV fluids which appears to be patient's baseline on records from 2016 -however creatinine is 2.34 on 09/27/18, and despite IV fluids the creatinine has increased to 3.35, have held the furosemide and lisinopril already, nephrology also recommended to hold the metoprolol -rodriguez resumed on 09/28/18 for monitoring output -creatinine has increase 3.56 on 09/28/18 and patient has received IV fluids , will hold off further IV fluids until 09/30/18 AM recheck based on creatinine and volume status or resume if blood pressure is low 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 Hypotension during hospital stay -during this hospital stay, patient has not had any high elevations of blood pressures -general blood pressures have been low normotensive with possible suboptimal readings when blood pressure being recorded when laying flat. have encouraged blood pressures to be taken when patient sitting upright -normal TSH levels 09/23/18 -normal cortisol levels levels 09/28/18 -has elevated inflammatory markers, has blood cultures drawn on 09/29/18 History of coronary artery disease -on statin and Toprol-XL. Hypoalbumineria -give BOOST supplements with meals History of pulmonary embolism and deep venous thrombosis, -has IVC filter -admission INR was supratherapeutic 5.1 and then reversed and was 1.6 and then coumadin was resumed on 09/24/18 as 2 mg daily -INR currently 1.3 on 09/25/18 and continued coumadin 2 mg daily -INR is 2 on 09/26/18 and will give coumadin 1.5 mg daily -INR is 2.8 on 09/27/18 and will give coumadin 1 mg daily -INR is 4.1 on 09/28/18, hold coumadin - CBC stable as 8.1 -INR is 4.8 on 09/29/18, hold coumadin -If INR continues to trend up on 09/30/18 then vitamin should be given osteoarthritis -denies pain Deep vein thrombosis prophylaxis: supratherapeutic INR from coumadin Code status level 3. (Full NO MECHANICAL VENTILATION) Disposition: awaiting insurance authorization for retirement facility Subjective denies chest pain or shortness of breath. legs in waffle boots. denies pain. denies lightheadedness Physical Exam Vital Signs (Past 24 Hours): Last Vital Signs Temp 36.7 C 09/29/18 07:53 Pulse 95 H 09/29/18 07:53 Resp 20 09/29/18 07:53 BP 109/64 09/29/18 07:53 Pulse Ox 99 09/29/18 08:00 Constitutional: WD/WN, vitals as above Eyes: PERRL, conjunctivae normal, anicteric sclerae EOM intact bilaterally ENMT: external ear and nose normal, oropharynx normal Neck: trachea midline, no thyromegaly Respiratory: normal respiratory effort, lungs clear to auscultation Cardiovascular: RRR, no murmur, no edema Gastrointestinal (Abdomen): Inspection/Auscultation: + visible herniation Percussion/Palpation: abdomen soft (bowel sounds present) Musculoskeletal: Spine: + sacral erythema (Pressure ulcer of buttock, unstageable) Extremities: + lower extremity abnormal to inspection (denuded skin bilateral lower legs) Skin: + rash (Fungal infection of intertrigo under breast and groin) Neurologic: PERRL, EOMI, accommodation nl, no face palsy, no dysarthria Psychiatric: Orientation: alert and oriented x 3
[2018-09-29] MEDS: CHOLECALCIFEROL 1,000 UNITS TAB PO SCH (20:06)
[2018-09-29] MEDS: ATORVASTATIN 20 MG TAB PO SCH (20:06)
--- NOTE | 2018-09-29 20:53 | Nephrology Progress Note ---
Date of Service September 29, 2018 Assessment & Plan (1) FRANKLYN (acute kidney injury): Patient with FRANKLYN likely due to ischemic ATN in setting of hypotension for several days. Baseline cr 1.4-1.6. Cr now at 3.56 and anuric. UA suggestive of ATN. She has a rodriguez now. Would get a renal U/S.to ensure no obstruction. Management of ATN is supportive. We can stop fluids now as she might get pulmonary congestion. BP is better. Monitor BMP daily. Avoid nephrotoxins. No indication for HD today. Will monitor daily for HD need. (2) Anemia: Patient with anemia of multifactorial etiology including possibly GI bleed and anemia of renal disease. Monitor and transfuse as needed. We can obtain iron studies including tibc and ferritin. She might benefit from CASIE Subjective Patient with ATN seen in follow up. No SOB or pain. She is still anuric. She is getting normal saline at 100ml/hr Review of Systems All systems reviewed & are unremarkable except as noted in HPI & below Physical Exam Vital Signs (Past 24 Hours): Last Vital Signs Temp 36.3 C L 09/29/18 16:00 Pulse 103 H 09/29/18 16:00 Resp 20 09/29/18 16:00 BP 122/63 09/29/18 16:00 Pulse Ox 96 09/29/18 16:00 Physical Exam: General exam: Appears comfortable, no acute distress HEENT: Pupils are equal and reactive to light Neck: No JVD, neck is supple trachea is midline Respiratory system: Crackles bilaterally. Gastrointestinal: Abdomen is soft, non distended, non tender, bowel sounds are present CVS: Regular rate and rhythm. No murmurs, rubs or gallops Musculoskeletal: No joint or muscle tenderness Extremities: Non tender, no edema, peripheral pulses are present Neuro: Oriented, no tremors, no focal neurological deficits Skin: Open areas in the sacrum Results & Data Laboratory Results k 4.1, cr 3.56 (1) Anemia Anemia type: unspecified type Qualified Code(s): D64.9 - Anemia, unspecified
[2018-09-29] MEDS ORDERED: Nursing to Pharmacy Communication ONE (21:17)
[2018-09-30 06:52] LABS: Basophils # (auto) 0.01 K/uL (0-0.2); Basophils % (auto) 0.1 %; Eosinophils # (auto) 0.27 K/uL (0-0.5); Eosinophils % (auto) 3.1 %; Hematocrit (blood only) 28.7 % (37-47); Hemoglobin 8.4 g/dL (12.0-16.0); Immature Granulocytes # (auto) 0.07 K/uL (0.00-0.02); Immature Granulocytes % (auto) 0.8 %; Lymphocytes % (auto) 12.8 %; Mean Corpuscular Hgb Conc 29.3 g/dL (32-36); Mean Corpuscular Volume 81.5 fL (80-100); Mean Platelet Volume 8.3 fL (7.4-10.4); Monocytes # (auto) 0.51 K/uL (0.11-0.59); Monocytes % (auto) 5.9 %; Neutrophils # (auto) 6.63 K/uL (1.4-6.5); Neutrophils % (auto) 77.3 %; Nucleated RBC # (auto) 0.02 K/uL (0-0); Nucleated RBC % (auto) 0.2 %; Platelet Count 422 K/uL (130-400); RDW Coefficient of Variation 22.7 % (11.5-14.5); RDW Standard Deviation 65.4 fL (36.4-46.3); Red Blood Count 3.52 M/uL (4.2-5.4); White Blood Count 8.59 K/uL (4.8-10.8)
[2018-09-30 07:13] LABS: BUN Creatinine Ratio 10.4 (10-20); Calcium 7.7 mg/dl (8.5-10.1); Creatinine Clr Calc Pharmacy 11.8 ml/min; Est GFR (Non-African American) 11.2; Potassium 4.4 mmol/L (3.5-5.1)
[2018-09-30 07:28] LABS: Anisocytosis Present; Hypochromasia Present
[2018-09-30] MEDS: POTASSIUM CHLORIDE 10 MEQ TABCR PO SCH (07:30)
[2018-09-30] MEDS: FOLIC ACID 1 MG TAB PO SCH (07:30)
[2018-09-30] MEDS: FERROUS SULFATE 325 MG TAB PO SCH (07:30)
[2018-09-30] MEDS: NYSTATIN POWDER 15GM BTL EXT SCH ×2 (07:31→21:54)
[2018-09-30] MEDS: INSULIN ASPART 100 UNITS/ML 3 ML PEN SC SCH ×4 (08:42→21:15)
--- NOTE | 2018-09-30 18:15 | Hospitalist Progress Note ---
Date of Service September 30, 2018 Assessment & Plan (1) Weakness: Patient is an 88 yr female who presents with ambulatory dysfunction, fall, found to have urinary tract infection, possible dehydration, decubitus ulcer and also ongoing fungal infection and trace Hemoccult positive with anemia. Ambulatory dysfunction. H/O falls at home PT/OT Needs Rehab placement Anemia, Multifactorial In setting of Supratherapeutic INR Microcytic anemia consistent with iron deficiency anemia H/O duodenal ulcers in the past, on Coumadin H/O hemorrhoids Trace Hemoccult positive in ED Hb Stable Patient not interested in any interventions Appreciate GI Input Continue PPI BID normal vitamin B12 low folic acid--continue folic acid supplements daily low iron levels, received venofer IV on 09/24/18 for iron deficiency and continue with daily iron supplements Monitor CBC DM II: Peripheral vascular disease and peripheral neuropathy HbA1c 7.3 Hold glipizide Continue ISS Venous insufficiency with denuded skin bilateral lower legs, risk for cutaneous breakdown, ulceration, poa buttocks Pressure ulcer, stage 3, POA Painful onychomycosis. seen by podiatry on 09/24/18: Debridement of mycotic nails; continued offloading devices as seen at bedside with heel protectors and bandaging. regular podiatry follow up Continue wound care Fungal infection intertrigo, POA Dermatitis associated with incontinence Continue wound Care Continue antifungal powder UTI: Urine Culture: E.coli Completed IV Abx FRANKLYN on CKD III Due to ATN Received IV Fluids Avoid Nephrotoxic agents Monitor renal function Appreciate Nephrology Input Hold Diuretics, Lisinopril for now Chronic R sided heart failure with preserved EF Resume Lasix, lisinopril, Metoprolol as able H/O HTN Hypotension during hospital stay BP stable now Monitor Normal TSH, cortisol levels blood cultures pending H/O CAD on statin and Toprol-XL. Hypoalbuminemia Continue supplements with meals H/O PE and DVT S/P IVC filter Supratherapeutic INR Monitor INR: 4.0 Hold Coumadin today Osteoarthritis Stable DVT Px: supratherapeutic INR Code status: Full, No Mechanical Ventilation Disposition: Plan to discharge to SNF when stable Subjective Patient is seen and examined at bedside Doing well today Offers no complaints Denies chest pain, SOB, dizziness, abd pain Physical Exam Vital Signs (Past 24 Hours): Last Vital Signs Temp 36.3 C L 09/30/18 16:11 Pulse 95 H 09/30/18 16:11 Resp 24 09/30/18 16:11 BP 122/64 09/30/18 16:11 Pulse Ox 100 09/30/18 16:11 Physical Exam: Physical Exam: Vitals signs as noted above General Appearance:Obese, no apparent distress Head: normocephalic, Atraumatic Eyes: normal inspection, EOMI Neck: supple, Trachea midline Respiratory/Chest: Normal breath sounds, CTA Cardiovascular: S1, S2, No murmur Abdomen/GI:Soft, Non tender, +Abd hernia, Bowel sounds present Sacrum: +Pressure Ulcer Extremities/Musculoskelatal:normal inspection, no edema, +Denuded skin Neurologic/Psych:AAOX3, grossly no focal neurological deficits Skin: normal color, warm Results & Data Laboratory Results Short CBC 09/30/18 Range/Units 06:31 WBC 8.59 (4.8-10.8) K/uL Hgb 8.4 L (12.0-16.0) g/dL Hct 28.7 L (37-47) % Plt Count 422 H (130-400) K/uL BMP 09/30/18 06:31 Sodium 143 Potassium 4.4 Chloride 118 H Carbon Dioxide 20 L BUN 36 H Creatinine 3.43 H Glucose 115 H Calcium 7.7 L
--- NOTE | 2018-09-30 19:14 | Nephrology Progress Note ---
Date of Service September 30, 2018 Assessment & Plan (1) FRANKLYN (acute kidney injury): Patient with FRANKLYN likely due to ischemic ATN in setting of hypotension for several days. Baseline cr 1.4-1.6. Cr peak at 3.56, now down to 3.4. Urine output increasing. UA suggestive of ATN. She has a rodriguez now. renal U/S show normal size kidneys, no hydronephrosis. Management of ATN is supportive. BP is better. Monitor BMP daily. Avoid nephrotoxins. No indication for HD today. Will monitor daily for HD need. (2) Anemia: Patient with anemia of multifactorial etiology including possibly GI bleed and anemia of renal disease. Monitor and transfuse as needed. We can obtain iron studies including tibc and ferritin. She might benefit from CASIE Subjective Patient with ATN seen in follow up. No SOB or pain. She is now making urine about 655ml yesterday. Cr slightly better today Review of Systems All systems reviewed & are unremarkable except as noted in HPI & below Physical Exam Vital Signs (Past 24 Hours): Last Vital Signs Temp 36.3 C L 09/30/18 16:11 Pulse 95 H 09/30/18 16:11 Resp 24 09/30/18 16:11 BP 122/64 09/30/18 16:11 Pulse Ox 100 09/30/18 16:11 Physical Exam: General exam: Obese, Appears comfortable, no acute distress HEENT: Pupils are equal and reactive to light Neck: No JVD, neck is supple trachea is midline Respiratory system: Crackles bilaterally. Gastrointestinal: Abdomen is soft, non distended, non tender, bowel sounds are present CVS: Regular rate and rhythm. No murmurs, rubs or gallops Musculoskeletal: No joint or muscle tenderness Extremities: Non tender, no edema, peripheral pulses are present Neuro: Oriented, no tremors, no focal neurological deficits Skin: No rashes, few open areas on the legs and sacrum Results & Data Laboratory Results cr 3.4, k4.4, hb 8.5 (1) Anemia Anemia type: unspecified type Qualified Code(s): D64.9 - Anemia, unspecified
[2018-09-30 20:54] LABS: Iron 33 mcg/dl (35-150); Transferrin 126 mg/dl (200-360); Transferrin Percent Saturation 19 % (15-50)
[2018-09-30] MEDS: ATORVASTATIN 20 MG TAB PO SCH (21:54)
[2018-09-30] MEDS: PANTOprazole 40 MG TAB PO SCH (21:54)
[2018-09-30] MEDS: CHOLECALCIFEROL 1,000 UNITS TAB PO SCH (21:54)
[2018-10-01 07:25] LABS: Hematocrit (blood only) 26.8 % (37-47); Hemoglobin 7.8 g/dL (12.0-16.0); Mean Corpuscular Hgb Conc 29.1 g/dL (32-36); Mean Corpuscular Volume 81.7 fL (80-100); Mean Platelet Volume 8.4 fL (7.4-10.4); Platelet Count 434 K/uL (130-400); RDW Coefficient of Variation 22.9 % (11.5-14.5); RDW Standard Deviation 65.9 fL (36.4-46.3); Red Blood Count 3.28 M/uL (4.2-5.4); White Blood Count 6.92 K/uL (4.8-10.8)
[2018-10-01 07:39] LABS: INR 3.2 (0.9-1.1); Prothrombin Time 30.1 Seconds (9.0-12.0)
[2018-10-01 08:00] LABS: BUN Creatinine Ratio 12.2 (10-20); Calcium 7.9 mg/dl (8.5-10.1); Creatinine Clr Calc Pharmacy 13.5 ml/min; Est GFR (African American) 15.3; Est GFR (Non-African American) 13.2; Potassium 4.5 mmol/L (3.5-5.1)
[2018-10-01] MEDS: NYSTATIN POWDER 15GM BTL EXT SCH ×2 (09:04→20:44)
[2018-10-01] MEDS: DEXTROSE 5% 1,000 ML IV SCH ×2 (09:05→17:19)
[2018-10-01] MEDS: FOLIC ACID 1 MG TAB PO SCH (09:13)
[2018-10-01] MEDS: PANTOprazole 40 MG TAB PO SCH ×2 (09:13→20:43)
[2018-10-01] MEDS: FERROUS SULFATE 325 MG TAB PO SCH (09:13)
[2018-10-01] MEDS: POTASSIUM CHLORIDE 10 MEQ TABCR PO SCH (09:13)
[2018-10-01] MEDS: INSULIN ASPART 100 UNITS/ML 3 ML PEN SC SCH ×4 (09:18→20:46)
[2018-10-01] MEDS: TRAMADOL HCL 50 MG TABLET PO PRN (10:33)
[2018-10-01] MEDS ORDERED: ALBUT/IPRATROP 3MG/0.5MG NEB 3 ML VIAL NEB PRN (11:43)
--- NOTE | 2018-10-01 16:04 | Wound Progress Note ---
Date of Service October 01, 2018 Assessment & Plan (1) Dermatitis associated with incontinence: Patient's wounds do appear macerated and appears to have a fungal component. No debridement was required at this time. Will change barrier cream to antifungal barrier cream. We will pack wound with Aquacel AG to help dry the wounds. We will continue to monitor. Please not hesitate to call with any questions. Thank you for allowing me to participate in the care of this patient. Subjective Patient seen for follow-up of chemical dermatitis of the perineum and stage II pressure ulcers. Patient has been very resistant to treatment over the last few days of taking her when out of her room. She denies any new complaints. Review of Systems All systems reviewed & are unremarkable except as noted in HPI & below Physical Exam Vital Signs (Past 24 Hours): Last Vital Signs Temp 36.3 C L 10/01/18 15:30 Pulse 82 10/01/18 15:30 Resp 24 10/01/18 15:30 BP 134/74 10/01/18 15:30 Pulse Ox 100 10/01/18 15:30 Skin: Perineum is now macerated. Does appear to be a component of fungal infection as well.
[2018-10-01 17:00] LABS: Hematocrit (blood only) 25.5 % (37-47); Hemoglobin 7.5 g/dL (12.0-16.0)
[2018-10-01] MEDS ORDERED: SODIUM CHLORIDE 0.9% 250 ML IV PRN (18:02)
--- NOTE | 2018-10-01 18:03 | Nephrology Progress Note ---
Date of Service October 01, 2018 Assessment & Plan (1) FRANKLYN (acute kidney injury): Patient with FRANKLYN likely due to ischemic ATN in setting of hypotension for several days. Baseline cr 1.4-1.6. Cr peak at 3.56, now down to 3. Urine output increasing. UA suggestive of ATN. She has a rodriguez now. renal U/S show normal size kidneys, no hydronephrosis. Management of ATN is supportive. BP is better. Monitor BMP daily. Avoid nephrotoxins. No indication for HD today. Will monitor daily for HD need. (2) Anemia: Patient with anemia of multifactorial etiology including possibly GI bleed and anemia of renal disease. Monitor and transfuse as needed. We can obtain iron studies including tibc and ferritin. She might benefit from CASIE (3) Acute hypernatremia: Patient with hypernatremia due to inadequate intake. Will give D5 at 80ml/hr for 1 litre. Encourage po intake Subjective Patient with ATN seen in follow up. No SOB or pain. She is now making urine about 626ml yesterday. Cr slightly better today at 3. She is not reporting increased thirst. She is trying to drink Review of Systems All systems reviewed & are unremarkable except as noted in HPI & below Physical Exam Vital Signs (Past 24 Hours): Last Vital Signs Temp 36.3 C L 10/01/18 15:30 Pulse 82 10/01/18 15:30 Resp 24 10/01/18 15:30 BP 134/74 10/01/18 15:30 Pulse Ox 100 10/01/18 15:30 Physical Exam: General exam: Appears comfortable on oxygen, no acute distress HEENT: Pupils are equal and reactive to light Neck: No JVD, neck is supple trachea is midline Respiratory system: Rhonchi bilaterally. Gastrointestinal: Abdomen is soft, non distended, non tender, bowel sounds are present CVS: Regular rate and rhythm. No murmurs, rubs or gallops Musculoskeletal: No joint or muscle tenderness Extremities: Non tender, no edema, peripheral pulses are present Neuro: Oriented, no tremors, no focal neurological deficits Skin: No rashes Results & Data Laboratory Results k4.5 cr 3, Na 147, hb 7.8 (1) Anemia Anemia type: unspecified type Qualified Code(s): D64.9 - Anemia, unspecified
[2018-10-01] MEDS: ATORVASTATIN 20 MG TAB PO SCH (20:43)
[2018-10-01] MEDS: CHOLECALCIFEROL 1,000 UNITS TAB PO SCH (20:43)
--- NOTE | 2018-10-01 21:08 | Hospitalist Progress Note ---
Date of Service October 01, 2018 Assessment & Plan (1) Weakness: Patient is an 88 yr female who presents with ambulatory dysfunction, fall, found to have urinary tract infection, possible dehydration, decubitus ulcer and also ongoing fungal infection and trace Hemoccult positive with anemia. Ambulatory dysfunction. H/O falls at home PT/OT Needs Rehab placement Anemia, Multifactorial In setting of Supratherapeutic INR Microcytic anemia consistent with iron deficiency anemia H/O duodenal ulcers in the past, on Coumadin H/O hemorrhoids Trace Hemoccult positive in ED Hb Stable Patient not interested in any interventions Appreciate GI Input Continue PPI BID normal vitamin B12 low folic acid--continue folic acid supplements daily low iron levels, received venofer IV on 09/24/18 for iron deficiency and continue with daily iron supplements Monitor CBC Hb 7.5 today Transfuse 1 unit PRBC DM II: Peripheral vascular disease and peripheral neuropathy HbA1c 7.3 Hold glipizide Continue ISS Venous insufficiency with denuded skin bilateral lower legs, risk for cutaneous breakdown, ulceration, poa buttocks Pressure ulcer, stage 3, POA Painful onychomycosis. seen by podiatry on 09/24/18: Debridement of mycotic nails; continued offloading devices as seen at bedside with heel protectors and bandaging. regular podiatry follow up Continue wound care Fungal infection intertrigo, POA Dermatitis associated with incontinence Continue wound Care Continue antifungal powder UTI: Urine Culture: E.coli Completed IV Abx FRANKLYN on CKD III Due to ATN Avoid Nephrotoxic agents Monitor renal function Appreciate Nephrology Input Hold Diuretics, Lisinopril for now IV fluids as per nephrology Monitor volume status No indication for HD Chronic R sided heart failure with preserved EF Resume Lasix, lisinopril, Metoprolol as able H/O HTN Hypotension during hospital stay BP stable now Monitor Normal TSH, cortisol levels blood cultures:No growth to date Hypernatremia: Continue IV fluids Monitor sodium levels H/O CAD on statin and Toprol-XL. Hypoalbuminemia Continue supplements with meals H/O PE and DVT S/P IVC filter Supratherapeutic INR Monitor INR: 4.0>>>3.2 Hold Coumadin today Osteoarthritis Stable DVT Px: supratherapeutic INR Code status: Full, No Mechanical Ventilation Disposition: Plan to discharge to SNF when stable Subjective Patient is seen and examined at bedside Creatinine level slightly improved Sleepy this morning Hemoglobin slightly dropped, no active bleeding No other complaints Denies chest pain, SOB, dizziness, abd pain Physical Exam Vital Signs (Past 24 Hours): Last Vital Signs Temp 36.3 C L 10/01/18 15:30 Pulse 82 10/01/18 15:30 Resp 24 10/01/18 15:30 BP 134/74 10/01/18 15:30 Pulse Ox 100 10/01/18 15:30 Physical Exam: Physical Exam: Vitals signs as noted above General Appearance:Obese, no apparent distress Head: normocephalic, Atraumatic Eyes: normal inspection, EOMI Neck: supple, Trachea midline Respiratory/Chest: Normal breath sounds, scattered wheezing Cardiovascular: S1, S2, No murmur Abdomen/GI:Soft, Non tender, +Abd hernia, Bowel sounds present Sacrum: +Pressure Ulcer Extremities/Musculoskelatal:normal inspection, no edema, +Denuded skin Neurologic/Psych:AAOX3, grossly no focal neurological deficits Skin: normal color, warm Results & Data Laboratory Results Short CBC 10/01/18 10/01/18 Range/Units 07:06 16:16 WBC 6.92 (4.8-10.8) K/uL Hgb 7.8 L 7.5 L (12.0-16.0) g/dL Hct 26.8 L 25.5 L (37-47) % Plt Count 434 H (130-400) K/uL BMP 10/01/18 07:06 Sodium 147 H Potassium 4.5 Chloride 120 H Carbon Dioxide 21 BUN 37 H Creatinine 3.01 H D Glucose 111 H Calcium 7.9 L
[2018-10-01 22:18] LABS: Hematocrit (blood only) 24.9 % (37-47); Hemoglobin 7.3 g/dL (12.0-16.0)
[2018-10-02] MEDS: DEXTROSE 5% 1,000 ML IV SCH (01:24)
[2018-10-02] MEDS: TRAMADOL HCL 50 MG TABLET PO PRN (06:22)
[2018-10-02 07:27] LABS: INR 2.9 (0.9-1.1); Prothrombin Time 27.5 Seconds (9.0-12.0)
[2018-10-02 08:04] LABS: BUN Creatinine Ratio 13.2 (10-20); Calcium 7.7 mg/dl (8.5-10.1); Creatinine Clr Calc Pharmacy 14.8 ml/min; Est GFR (African American) 17.1; Est GFR (Non-African American) 14.8; Potassium 4.5 mmol/L (3.5-5.1)
[2018-10-02] MEDS ORDERED: DEXTROSE 5% 1,000 ML IV SCH (08:15)
[2018-10-02] MEDS: INSULIN ASPART 100 UNITS/ML 3 ML PEN SC SCH ×5 (08:45→21:32)
[2018-10-02] MEDS: PANTOprazole 40 MG TAB PO SCH ×2 (08:46→20:51)
[2018-10-02] MEDS: POTASSIUM CHLORIDE 10 MEQ TABCR PO SCH (08:46)
[2018-10-02] MEDS: FERROUS SULFATE 325 MG TAB PO SCH (08:46)
[2018-10-02] MEDS: FOLIC ACID 1 MG TAB PO SCH (08:46)
[2018-10-02] MEDS: NYSTATIN POWDER 15GM BTL EXT SCH ×2 (08:47→20:50)
--- NOTE | 2018-10-02 14:55 | Palliative Care Consultation ---
Date of Consultation October 02, 2018 Assessment & Plan (1) Weakness: (2) Goals of care, counseling/discussion: -88 year old female patient with PMH significant for type 2 diabetes, right-sided heart failure, hypertension, PA, hemorrhoids, gastrointestinal hemorrhage, generalized osteoarthritis, iron deficiency anemia, history of pulmonary embolism, venous thrombosis on Coumadin, and gastric ulcers, presented to the hospital nine days ago after sliding out of her recliner chair at home. Patient lives at home alone, but her family lives close by, her son checks on her 3-4 times a day. Patient had been having frequent falls. Per report, has been ambulating less and less at home. Really only gets out of chair to go to bedside commode which family helps her empty. In ED, stool positive for hemeoccult. Since admission to hospital, patient has had complications with decreasing hgb, today is 7.2, acute kidney injury, UTI (E. coli), BL leg wounds/cellulitis, and fungal skin infections in skin folds. Also has sacral ulcer from sedentary lifestyle. GI was consulted, but patient declined any invasive procedure for the possible GI bleed. She was given Vitamin K for elevated INR of 5. Nephrology consulted for the acute kidney injury. Creatinine peaked at 3.56, now down to 2.74, baseline is 1.4-1.6. Patient has been refusing blood transfusions. Did make herself a DNR, but there is question about goals of care. Palliative care is consulted. -Met with patient in room 457. She was sleeping but easily awakens and is oriented x4. Patient denies any complaints. Patient could recall that she had fallen out of her chair and knows that her blood count is low and her kidneys "aren't great." -Patient stated, "I know I'm no spring chicken, but I'm not ready to hang it up just yet." In regards to medical treatment, patient stated, "I just don't want to go overboard." -We discussed the blood transfusion. She said she didn't think she needed it because it wasn't "life or ." I explained the low hemoglobin and risks associated. After discussion, patient IS willing to have blood transfusion. -In regards to long-term goals, patient really wants to be at home. Doesn't want to go to rehab but didn't necessarily refuse. She said eventually she would be okay with doing hospice at home, but she is not ready for that yet. Mayte would be okay with returning to hospital for easily reversible causes, but again DOES NOT want heroic or invasive measures. -PT/OT are consulted. If they recommend SNF for rehab, needs to be discussed with patient and family. I did call patient's son, Jevon, but no answer. -If patient is here on Friday, will follow up. (3) FRANKLYN (acute kidney injury): (4) Pressure ulcer of buttock, unstageable: (5) Dermatitis associated with incontinence: (6) Heme positive stool: (7) Anemia: Anemia type: unspecified type Qualified Code(s): D64.9 - Anemia, unspecified Supervising Physician Co-Signing Physician Notes Chart reviewed, patient seen and examined-no family at bedside. Patient seen along with JESSICA Rosas on a separate visit in the afternoon. PE: Patient resting comfortably, able to lie flat HEENT: EOMI Respiratory: Equal breath sounds, unlabored, no rales or rhonchi CV: Regular rate and rhythm, 2+ pitting edema lower extremities Abdomen: Soft, nontender, obese Skin: Multiple superficial wounds on lower extremities-dressings in place Neuro: Patient alert and oriented Agree with above note, assessment and plan as per JESSICA Rosas-will continue to follow and assist with medical decision making. History of Present Illness Attending Physician: Jan Nazario MD History of Present Illness This 88 year old female patient with PMH significant for type 2 diabetes, right- sided heart failure, hypertension, PA, hemorrhoids, gastrointestinal hemorrhage, generalized osteoarthritis, iron deficiency anemia, history of pulmonary embolism, venous thrombosis on Coumadin, and gastric ulcers, presented to the hospital nine days ago after sliding out of her recliner chair at home. Patient lives at home alone, but her family lives close by, her son checks on her 3-4 times a day. Patient had been having frequent falls. Per report, has been ambulating less and less at home. Really only gets out of chair to go to bedside commode which family helps her empty. In ED, stool positive for hemeoccult. Since admission to hospital, patient has had complications with decreasing hgb, today is 7.2, acute kidney injury, UTI (E. coli), BL leg wounds/cellulitis, and fungal skin infections in skin folds. Also has sacral ulcer from sedentary lifes tyle. GI was consulted, but patient declined any invasive procedure for the possible GI bleed. She was given Vitamin K for elevated INR of 5. Nephrology consulted for the acute kidney injury. Creatinine peaked at 3.56, now down to 2.74, baseline is 1.4-1.6. Patient has been refusing blood transfusions. Did make herself a DNR, but there is question about goals of care. Palliative care is consulted. Thank you kindly for this consult. I will follow. Allergies Allergy/AdvReac Type Severity Reaction Status Date / Time morphine Allergy Unknown Verified 09/23/18 19:31 codeine AdvReac Unknown UPSET Verified 09/23/18 19:40 STOMACH Home Medications Home Medications Medication Instructions Recorded Confirmed Type acetaminophen [Tylenol Extra 500 mg PO QID PRN 09/23/18 09/23/18 History Strength] atorvastatin [Lipitor] 20 mg PO HS 09/23/18 09/23/18 History cholecalciferol (vitamin D3) 1,000 unit PO HS 09/23/18 09/23/18 History [Vitamin D3] furosemide 20 mg PO DAILY 09/23/18 09/23/18 History glipizide 5 mg PO BID 09/23/18 09/23/18 History lisinopril 2.5 mg PO HS 09/23/18 09/23/18 History metoprolol succinate [Toprol XL] 50 mg PO HS 09/23/18 09/23/18 History potassium chloride 10 meq PO DAILY 09/23/18 09/23/18 History tramadol 50 mg PO Q6H PRN 09/23/18 09/23/18 History warfarin [Coumadin] 2 mg PO UD 09/23/18 09/23/18 History Patient History Medical History Hypertension Family History Other Family history non-contributory Social History Communication Ability: Effective Beliefs That Will Affect Care: None Current Living Situation: Alone Other Information That Helps Us Care for You: No Feels Safe at Home: Yes Safety Concerns: Feels Safe At This Time Smoking Status: Former smoker Hx Alcohol Use: No Hx Substance Use: No Review of Systems Constitutional: + weakness Ear, Nose, Mouth, Throat: no sore throat and no dysphagia Respiratory: no cough and no dyspnea Cardiovascular: + edema; no chest pain Gastrointestinal: no abdominal pain, no nausea and no vomiting Musculoskeletal: no body aches Neurologic: no confusion Psychiatric: no depression and no anxiety Physical Exam Vital Signs (Past 24 Hours): Last Vital Signs Temp 36.4 C L 10/02/18 07:45 Pulse 77 10/02/18 07:45 Resp 20 10/02/18 07:45 BP 115/71 10/02/18 07:45 Pulse Ox 100 10/02/18 07:45 Constitutional: + obese; no acute distress ENMT: external ear and nose normal, oropharynx normal Neck: + thick neck Respiratory: normal respiratory effort, lungs clear to auscultation Auscultation: + diminished lung sounds Cardiovascular: Rate/Rhythm: regular rate and regular rhythm Heart Sounds: no murmur Extremities: + edema (+2 pitting to BLE) Gastrointestinal (Abdomen): Inspection/Auscultation: abdomen normal to inspection (obese abdomen) and normal bowel sounds Percussion/Palpation: abdomen soft; abdomen nontender Skin: see wound care physician and nurses notes. multiple areas of impaired skin integrity. open areas covered with dressings on BL LE. Neurologic: moves all extremities and awake; not confused Psychiatric: A+Ox3, euthymic affect Insight: good insight Time Spent Midlevel 70 minutes with >50% of time spent at bedside with patient discussing condition, and GOC.
--- NOTE | 2018-10-02 15:39 | Wound Progress Note ---
Date of Service October 02, 2018 Assessment & Plan (1) Dermatitis associated with incontinence: Wounds do not appear is macerated. There does not appear to be pretty significant improvement. No debridement was required at this time. Will change barrier cream to antifungal barrier powder. We will pack wound with Aquacel AG to help dry the wounds. We will continue to monitor. Please not hesitate to call with any questions. Thank you for allowing me to participate in the care of this patient. Subjective Patient seen for follow-up of chemical dermatitis the perineum. She we have been dressing her wounds with Aquacel Ag and an antifungal barrier powder. She has no new complaints and thinks she is doing well. Review of Systems All systems reviewed & are unremarkable except as noted in HPI & below Physical Exam Vital Signs (Past 24 Hours): Last Vital Signs Temp 36.3 C L 10/02/18 15:02 Pulse 70 10/02/18 15:02 Resp 20 10/02/18 15:02 BP 124/73 10/02/18 15:02 Pulse Ox 100 10/02/18 15:02 Skin: Wounds are improving. They did not appear is macerated. Neurologic: awake; not confused Psychiatric: A+Ox3, euthymic affect
--- NOTE | 2018-10-02 18:54 | Nephrology Progress Note ---
Date of Service October 02, 2018 Assessment & Plan (1) FRANKLYN (acute kidney injury): Patient with FRANKLYN likely due to ischemic ATN in setting of hypotension for several days. Baseline cr 1.4-1.6. Cr peak at 3.56, now down to 2.7. She is nonoliguric. UA suggestive of ATN. She has a rodriguez now. renal U/S show normal size kidneys, no hydronephrosis. Management of ATN is supportive. BP is better. Monitor BMP daily. Avoid nephrotoxins. No indication for HD today. Will monitor daily for HD need. (2) Anemia: Patient with anemia of multifactorial etiology including possibly GI bleed and anemia of renal disease. Hemoglobin of 7.3 today. Monitor and transfuse as needed. She might benefit from CASIE (3) Acute hypernatremia: Patient with hypernatremia due to inadequate intake. Improved with D5. Encourage po intake Subjective Patient with ATN seen in follow up. She complained of mild shortness of breath. She was eating breakfast at the time of my visit. Creatinine is slightly better at 2.7 today. Review of Systems All systems reviewed & are unremarkable except as noted in HPI & below Physical Exam Vital Signs (Past 24 Hours): Last Vital Signs Temp 36.3 C L 10/02/18 15:02 Pulse 70 10/02/18 15:02 Resp 20 10/02/18 15:02 BP 124/73 10/02/18 15:02 Pulse Ox 100 10/02/18 15:02 Physical Exam: General exam: Appears comfortable, no acute distress HEENT: Pupils are equal and reactive to light Neck: No JVD, neck is supple trachea is midline Respiratory system: Wheezing bilaterally. Gastrointestinal: Abdomen is soft, non distended, non tender, bowel sounds are present CVS: Regular rate and rhythm. No murmurs, rubs or gallops Musculoskeletal: No joint or muscle tenderness Extremities: Non tender, no edema, peripheral pulses are present Neuro: Oriented, no tremors, no focal neurological deficits Skin: No rashes Results & Data Laboratory Results Hemoglobin 7.3, sodium 138, potassium 4.5, BUN 36, creatinine 2.7 (1) Anemia Anemia type: unspecified type Qualified Code(s): D64.9 - Anemia, unspecified
--- NOTE | 2018-10-02 19:42 | Hospitalist Progress Note ---
Date of Service October 02, 2018 Assessment & Plan (1) Weakness: Patient is an 88 yr female who presents with ambulatory dysfunction, fall, found to have urinary tract infection, possible dehydration, decubitus ulcer and also ongoing fungal infection and trace Hemoccult positive with anemia. Ambulatory dysfunction. H/O falls at home PT/OT Needs Rehab placement Anemia, Multifactorial In setting of Supratherapeutic INR Microcytic anemia consistent with iron deficiency anemia H/O duodenal ulcers in the past, on Coumadin H/O hemorrhoids Trace Hemoccult positive in ED Hb Stable Patient not interested in any interventions/Heroic measures Appreciate GI Input Continue PPI BID normal vitamin B12 low folic acid--continue folic acid supplements daily low iron levels, received venofer IV on 09/24/18 for iron deficiency and continue with daily iron supplements Monitor CBC Hb 7. 3 today Transfuse PRBCs PRN if patient agrees for transfusion DM II: Peripheral vascular disease and peripheral neuropathy HbA1c 7.3 Hold glipizide Continue ISS Venous insufficiency with denuded skin bilateral lower legs, risk for cutaneous breakdown, ulceration, poa buttocks Pressure ulcer, stage 3, POA Painful onychomycosis. seen by podiatry on 09/24/18: Debridement of mycotic nails; continued offloading devices as seen at bedside with heel protectors and bandaging. regular podiatry follow up Continue wound care Fungal infection intertrigo, POA Dermatitis associated with incontinence Continue wound Care Continue antifungal powder UTI: Urine Culture: E.coli Completed IV Abx FRANKLYN on CKD III Due to ATN Avoid Nephrotoxic agents Monitor renal function Appreciate Nephrology Input Hold Diuretics, Lisinopril for now IV fluids discontinued Monitor volume status No indication for HD Cr:2.7 today Chronic R sided heart failure with preserved EF Resume Lasix, lisinopril, Metoprolol as able H/O HTN Hypotension during hospital stay BP stable Monitor Normal TSH, cortisol levels blood cultures:No growth to date Hypernatremia: Resolved Received IV fluids Monitor sodium levels H/O CAD on statin and Toprol-XL. Hypoalbuminemia Continue supplements with meals H/O PE and DVT S/P IVC filter Supratherapeutic INR Monitor INR: 4.0>>>3.2>>2.9 Hold Coumadin today Osteoarthritis Stable DVT Px: therapeutic INR Code status: DNI/DNR Disposition: Plan to discharge to SNF when stable Subjective Patient is seen and examined at bedside Creatinine slightly improved Mild SOB earlier today, Fluids DCed Discussed in detail with family Hemoglobin slightly dropped, no active bleeding, likely dilutional due to IV fluids Denies chest pain, dizziness, abd pain Physical Exam Vital Signs (Past 24 Hours): Last Vital Signs Temp 36.3 C L 10/02/18 15:02 Pulse 70 10/02/18 15:02 Resp 20 10/02/18 15:02 BP 124/73 10/02/18 15:02 Pulse Ox 100 10/02/18 15:02 Physical Exam: Physical Exam: Vitals signs as noted above General Appearance:Obese, no apparent distress Head: normocephalic, Atraumatic Eyes: normal inspection, EOMI Neck: supple, Trachea midline Respiratory/Chest: Normal breath sounds, scattered wheezing Cardiovascular: S1, S2, No murmur Abdomen/GI:Soft, Non tender, +Abd hernia, Bowel sounds present Sacrum: +Pressure Ulcer Extremities/Musculoskelatal:normal inspection, no edema, +Denuded skin Neurologic/Psych:AAOX3, grossly no focal neurological deficits Skin: normal color, warm Results & Data Laboratory Results Short CBC 10/01/18 Range/Units 22:10 Hgb 7.3 L (12.0-16.0) g/dL Hct 24.9 L (37-47) % BMP 10/02/18 07:05 Sodium 138 D Potassium 4.5 Chloride 112 H Carbon Dioxide 20 L BUN 36 H Creatinine 2.74 H Glucose 121 H Calcium 7.7 L
[2018-10-02] MEDS: ATORVASTATIN 20 MG TAB PO SCH (20:50)
[2018-10-02] MEDS: CHOLECALCIFEROL 1,000 UNITS TAB PO SCH (20:50)
[2018-10-03 06:22] LABS: Hematocrit (blood only) 26.8 % (37-47); Hemoglobin 7.9 g/dL (12.0-16.0)
[2018-10-03 06:34] LABS: INR 2.4 (0.9-1.1); Prothrombin Time 23.1 Seconds (9.0-12.0)
[2018-10-03 06:42] LABS: BUN Creatinine Ratio 14.7 (10-20); Creatinine Clr Calc Pharmacy 16.1 ml/min; Est GFR (African American) 18.9; Est GFR (Non-African American) 16.3; Potassium 5.1 mmol/L (3.5-5.1)
[2018-10-03] MEDS: FERROUS SULFATE 325 MG TAB PO SCH (09:41)
[2018-10-03] MEDS: FOLIC ACID 1 MG TAB PO SCH (09:41)
[2018-10-03] MEDS: NYSTATIN POWDER 15GM BTL EXT SCH ×2 (09:41→20:24)
[2018-10-03] MEDS: PANTOprazole 40 MG TAB PO SCH ×2 (09:41→20:25)
[2018-10-03] MEDS: INSULIN ASPART 100 UNITS/ML 3 ML PEN SC SCH ×4 (09:42→21:37)
--- NOTE | 2018-10-03 15:49 | Nephrology Progress Note ---
Date of Service October 03, 2018 Assessment & Plan (1) FRANKLYN (acute kidney injury): Patient with FRANKLYN likely due to ischemic ATN in setting of hypotension for several days. Baseline cr 1.4-1.6. Cr peak at 3.56, now down to 2.7> 2.5 today She is nonoliguric. UA suggestive of ATN. She has a rodriguez now. renal U/S show normal size kidneys, no hydronephrosis. -continue supportive management BP is better. Monitor BMP daily. Avoid nephrotoxins. No indication for HD today; palliative goals of care discussion noted and appreciated > have not discussed HD specifically (and will if need arises) but do note this pt not inclined to have more invasive measures than current care overall (2) Anemia: Patient with anemia of multifactorial etiology including possibly GI bleed and anemia of renal disease. Hemoglobin improving to 7.9 today. Monitor and transfuse as needed. would not use alaina ; t stn 19% on 09/30 Subjective no c/o of sob, of musculoskeletal pain, of n/v, of edema, of discomfort w/ rodriguez Physical Exam Vital Signs (Past 24 Hours): Last Vital Signs Temp 36.4 C L 10/03/18 14:58 Pulse 90 10/03/18 14:58 Resp 20 10/03/18 14:58 BP 100/49 L 10/03/18 14:58 Pulse Ox 93 10/03/18 14:58 Constitutional: well developed, well nourished and + frail appearing on 02nc 2L A& 0 x 2 w/ slightly increased wob Eyes: EOM intact bilaterally ENMT: Ears: no external ear abnormality Nose: no external nose abnormality Mouth: + dry oral mucous membranes Neck: no nuchal rigidity Respiratory: normal respiratory effort Auscultation: + diminished lung sounds Cardiovascular: Rate/Rhythm: regular rate and regular rhythm Extremities: + edema (trace ble) Gastrointestinal (Abdomen): Inspection/Auscultation: normal bowel sounds Percussion/Palpation: abdomen soft; abdomen nontender Musculoskeletal: Extremities: strength 5/5 throughout Skin: no rashes, warm and dry Neurologic: banuelos, fluent speech, no tremor Results & Data Laboratory Results Abnormal lab results 10/02/18 10/02/18 10/03/18 Range/Units 16:15 20:27 05:57 Hgb (12.0-16.0) g/dL Hct (37-47) % PT 23.1 H (9.0-12.0) Seconds INR 2.4 H (0.9-1.1) Chloride (98-107) mmol/L BUN (7-18) mg/dl Creatinine (0.6-1.2) mg/dl Glucose (70-99) mg/dl POC Glucose 118 H 110 H (70-99) Calcium (8.5-10.1) mg/dl 10/03/18 10/03/18 10/03/18 Range/Units 05:57 05:57 07:33 Hgb 7.9 L (12.0-16.0) g/dL Hct 26.8 L (37-47) % PT (9.0-12.0) Seconds INR (0.9-1.1) Chloride 112 H (98-107) mmol/L BUN 37 H (7-18) mg/dl Creatinine 2.52 H (0.6-1.2) mg/dl Glucose 106 H (70-99) mg/dl POC Glucose 103 H (70-99) Calcium 8.0 L (8.5-10.1) mg/dl 10/03/18 Range/Units 11:26 Hgb (12.0-16.0) g/dL Hct (37-47) % PT (9.0-12.0) Seconds INR (0.9-1.1) Chloride (98-107) mmol/L BUN (7-18) mg/dl Creatinine (0.6-1.2) mg/dl Glucose (70-99) mg/dl POC Glucose 135 H (70-99) Calcium (8.5-10.1) mg/dl (1) Anemia Anemia type: unspecified type Qualified Code(s): D64.9 - Anemia, unspecified
[2018-10-03] MEDS ORDERED: WARFARIN SOD 2 MG TAB PO SCH (16:00)
--- NOTE | 2018-10-03 17:23 | Hospitalist Progress Note ---
Date of Service October 03, 2018 Assessment & Plan (1) Weakness: Patient is an 88 yr female who presents with ambulatory dysfunction, fall, found to have urinary tract infection, possible dehydration, decubitus ulcer and also ongoing fungal infection and trace Hemoccult positive with anemia. Ambulatory dysfunction. H/O falls at home PT/OT Needs Rehab placement Patient currently prefers to be discharged home Anemia, Multifactorial In setting of Supratherapeutic INR Microcytic anemia consistent with iron deficiency anemia H/O duodenal ulcers in the past, on Coumadin H/O hemorrhoids Trace Hemoccult positive in ED Patient not interested in any interventions/Heroic measures Refuses PRBC transfusions Appreciate GI Input Continue PPI BID normal vitamin B12 low folic acid--continue folic acid supplements daily low iron levels, received venofer IV on 09/24/18 for iron deficiency and continue with daily iron supplements Monitor CBC Hb 7. 9 today Transfuse PRBCs PRN if patient agrees DM II: Peripheral vascular disease and peripheral neuropathy HbA1c 7.3 Hold glipizide Continue ISS Venous insufficiency with denuded skin bilateral lower legs, risk for cutaneous breakdown, ulceration, poa buttocks Pressure ulcer, stage 3, POA Painful onychomycosis. seen by podiatry on 09/24/18: Debridement of mycotic nails; continued offloading devices as seen at bedside with heel protectors and bandaging. regular podiatry follow up Continue wound care Fungal infection intertrigo, POA Dermatitis associated with incontinence Continue wound Care Continue antifungal powder UTI: Urine Culture: E.coli Completed IV Abx FRANKLYN on CKD III Due to ATN Avoid Nephrotoxic agents Monitor renal function Appreciate Nephrology Input Hold Diuretics, Lisinopril for now IV fluids discontinued Monitor volume status No indication for HD Cr:2.5 today Continue supportive management Chronic R sided heart failure with preserved EF Resume Lasix, lisinopril, Metoprolol as able H/O HTN Hypotension during hospital stay BP stable Monitor Normal TSH, cortisol levels blood cultures:No growth to date Hypernatremia: Resolved Received IV fluids Monitor sodium levels H/O CAD on statin and Toprol-XL. Hypoalbuminemia Continue supplements with meals H/O PE and DVT S/P IVC filter Supratherapeutic INR Monitor INR: 4.0>>>3.2>>2.9>>>2.4 Resume Coumadin today Osteoarthritis Stable DVT Px: on Coumadin Code status: DNI/DNR Disposition: Plan to discharge to SNF if patient agrees Subjective Patient is seen and examined at bedside Offers no complaints Refuses PRBC transfusions Creatinine slightly improved Potassium slightly up--hold supplements Denies chest pain, SOB, dizziness, abd pain Physical Exam Vital Signs (Past 24 Hours): Last Vital Signs Temp 36.4 C L 10/03/18 14:58 Pulse 90 10/03/18 14:58 Resp 20 10/03/18 14:58 BP 100/49 L 10/03/18 14:58 Pulse Ox 93 10/03/18 14:58 Physical Exam: Physical Exam: Vitals signs as noted above General Appearance:Obese, no apparent distress Head: normocephalic, Atraumatic Eyes: normal inspection, EOMI Neck: supple, Trachea midline Respiratory/Chest: Normal breath sounds, minimal wheezing Cardiovascular: S1, S2, No murmur Abdomen/GI:Soft, Non tender, +Abd hernia, Bowel sounds present Sacrum: +Pressure Ulcer Extremities/Musculoskelatal:normal inspection, no edema, +Denuded skin Neurologic/Psych:AAOX3, grossly no focal neurological deficits Skin: normal color, warm Results & Data Laboratory Results Short CBC 10/03/18 Range/Units 05:57 Hgb 7.9 L (12.0-16.0) g/dL Hct 26.8 L (37-47) % BMP 10/03/18 05:57 Sodium 138 Potassium 5.1 Chloride 112 H Carbon Dioxide 21 BUN 37 H Creatinine 2.52 H Glucose 106 H Calcium 8.0 L
[2018-10-03] MEDS: TRAMADOL HCL 50 MG TABLET PO PRN (18:41)
[2018-10-03] MEDS: CHOLECALCIFEROL 1,000 UNITS TAB PO SCH (20:25)
[2018-10-03] MEDS: ATORVASTATIN 20 MG TAB PO SCH (20:25)
[2018-10-04 07:07] LABS: Hematocrit (blood only) 25.3 % (37-47); Hemoglobin 7.5 g/dL (12.0-16.0)
[2018-10-04 07:21] LABS: INR 1.9 (0.9-1.1); Prothrombin Time 18.8 Seconds (9.0-12.0)
[2018-10-04 07:35] LABS: BUN Creatinine Ratio 15.5 (10-20); Calcium 7.8 mg/dl (8.5-10.1); Creatinine Clr Calc Pharmacy 17.9 ml/min; Est GFR (African American) 21.5; Est GFR (Non-African American) 18.5; Potassium 5.1 mmol/L (3.5-5.1)
[2018-10-04] MEDS: NYSTATIN POWDER 15GM BTL EXT SCH ×2 (09:13→21:20)
[2018-10-04] MEDS: INSULIN ASPART 100 UNITS/ML 3 ML PEN SC SCH ×4 (09:13→21:33)
[2018-10-04] MEDS: FERROUS SULFATE 325 MG TAB PO SCH (09:14)
[2018-10-04] MEDS: FOLIC ACID 1 MG TAB PO SCH (09:14)
[2018-10-04] MEDS: PANTOprazole 40 MG TAB PO SCH ×2 (09:14→21:21)
[2018-10-04] MEDS: WARFARIN SOD 4 MG TAB PO SCH (17:10)
--- NOTE | 2018-10-04 17:30 | Hospitalist Progress Note ---
Date of Service October 04, 2018 Assessment & Plan (1) Weakness: Patient is an 88 yr female who presents with ambulatory dysfunction, fall, found to have urinary tract infection, possible dehydration, decubitus ulcer and also ongoing fungal infection and trace Hemoccult positive with anemia. Ambulatory dysfunction. H/O falls at home PT/OT Needs Rehab placement Patient currently prefers to be discharged home Anemia, Multifactorial In setting of Supratherapeutic INR Microcytic anemia consistent with iron deficiency anemia H/O duodenal ulcers in the past, on Coumadin H/O hemorrhoids Trace Hemoccult positive in ED Patient not interested in any interventions/Heroic measures Refuses PRBC transfusions Appreciate GI Input Continue PPI BID normal vitamin B12 low folic acid--continue folic acid supplements daily low iron levels, received venofer IV on 09/24/18 for iron deficiency and continue with daily iron supplements Monitor CBC Hb 7. 5 today Continues to refuse PRBCs transfusion DM II: Peripheral vascular disease and peripheral neuropathy HbA1c 7.3 Hold glipizide Continue ISS Venous insufficiency with denuded skin bilateral lower legs, risk for cutaneous breakdown, ulceration, poa buttocks Pressure ulcer, stage 3, POA Painful onychomycosis. seen by podiatry on 09/24/18: Debridement of mycotic nails; continued offloading devices as seen at bedside with heel protectors and bandaging. 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 Hypoalbuminemia Continue supplements with meals H/O PE and DVT S/P IVC filter Supratherapeutic INR Monitor INR: 4.0>>>3.2>>2.9>>>2.4>>1.9 Give Coumadin 4mg today Osteoarthritis Stable DVT Px: on Coumadin Code status: DNI/DNR Disposition: Plan to discharge to SNF if patient agrees Subjective Patient is seen and examined at bedside Hb dropped to 7.5 today Refuses Blood Transfusion States feeling well Offers no complaints Creatinine continues to improve off diuretics Denies chest pain, SOB, dizziness, abd pain Physical Exam Vital Signs (Past 24 Hours): Last Vital Signs Temp 36.4 C L 10/04/18 16:02 Pulse 92 H 10/04/18 16:02 Resp 20 10/04/18 16:02 BP 122/68 10/04/18 16:02 Pulse Ox 100 10/04/18 16:02 Physical Exam: Physical Exam: Vitals signs as noted above General Appearance:Obese, no apparent distress Head: normocephalic, Atraumatic Eyes: normal inspection, EOMI Neck: supple, Trachea midline Respiratory/Chest: Normal breath sounds, minimal wheezing Cardiovascular: S1, S2, No murmur Abdomen/GI:Soft, Non tender, +Abd hernia, Bowel sounds present Sacrum: +Pressure Ulcer Extremities/Musculoskelatal:normal inspection, no edema, +Denuded skin Neurologic/Psych:AAOX3, grossly no focal neurological deficits Skin: normal color, warm Results & Data Laboratory Results Short CBC 10/04/18 Range/Units 06:51 Hgb 7.5 L (12.0-16.0) g/dL Hct 25.3 L (37-47) % BMP 10/04/18 06:51 Sodium 140 Potassium 5.1 Chloride 114 H Carbon Dioxide 24 BUN 35 H Creatinine 2.27 H Glucose 94 Calcium 7.8 L
[2018-10-04] MEDS: CHOLECALCIFEROL 1,000 UNITS TAB PO SCH (21:21)
[2018-10-04] MEDS: ATORVASTATIN 20 MG TAB PO SCH (21:21)
[2018-10-05] MEDS: TRAMADOL HCL 50 MG TABLET PO PRN (07:38)
[2018-10-05 07:40] LABS: Hematocrit (blood only) 26.1 % (37-47); Hemoglobin 7.8 g/dL (12.0-16.0)
[2018-10-05 07:50] LABS: Prothrombin Time 19.7 Seconds (9.0-12.0)
[2018-10-05 08:01] LABS: Potassium 5.3 mmol/L (3.5-5.1)
[2018-10-05 08:02] LABS: Calcium 8.1 mg/dl (8.5-10.1); Creatinine Clr Calc Pharmacy 19.7 ml/min; Est GFR (African American) 24.1; Est GFR (Non-African American) 20.8
[2018-10-05] MEDS ORDERED: FUROSEMIDE 20 MG TAB PO ONE (08:13)
--- NOTE | 2018-10-05 08:14 | Nephrology Progress Note ---
Date of Service October 05, 2018 Assessment & Plan (1) FRANKLYN (acute kidney injury): nonoliguric FRANKLYN likely due to ischemic ATN in setting of hypotension for several days. Baseline cr 1.4-1.6. Cr peak at 3.56, now down to 2.7> 2.1 today UA suggestive of ATN. renal U/S shows normal size kidneys, no hydronephrosis. -continue supportive management BP is better. Monitor BMP daily. Avoid nephrotoxins. No indication for HD today; palliative goals of care discussion noted and appreciated > have not discussed HD specifically (and will if need arises) but do note this pt not inclined to have more invasive measures than current care overall -will give one time 20 mg po lasix today d/t mild hyperkalemia >>>will sign off; discharge recommendations: -f/u in CKD clinic [place] first available provider (2-6 wks); weekly bmp x 4 <<I ordered this -hold lisinopril and K at d/c (on these as OP before admission) -give lasix MWF 20 mg po daily at d/c (2) Anemia: Patient with anemia of multifactorial etiology including possibly GI bleed and anemia of renal disease. Hemoglobin stable at 7.8 today. Monitor and transfuse as needed. would not use alaina ; t stn 19% on 09/30 Subjective seen on rounds this am at 0750; eating hearty breakfast; no c/o; cont to decline pRBC or wound care. Physical Exam Vital Signs (Past 24 Hours): Last Vital Signs Temp 36.7 C 10/05/18 07:22 Pulse 88 10/05/18 07:22 Resp 20 10/05/18 07:22 BP 128/74 10/05/18 07:22 Pulse Ox 100 10/05/18 07:22 Constitutional: well developed, well nourished, + frail appearing and + overweight on 02nc Eyes: EOM intact bilaterally ENMT: Ears: no external ear abnormality Nose: no external nose abnormality Mouth: + dry oral mucous membranes Neck: no nuchal rigidity Respiratory: normal respiratory effort Auscultation: + diminished lung sounds (minimal air entry either side) Cardiovascular: Rate/Rhythm: regular rate (HS distant) and regular rhythm Extremities: + edema (trace ble) Gastrointestinal (Abdomen): Inspection/Auscultation: normal bowel sounds Percussion/Palpation: abdomen soft; abdomen nontender Musculoskeletal: Extremities: strength 5/5 throughout Skin: no rashes, warm and dry Results & Data Laboratory Results Abnormal lab results 10/01/18 10/04/18 10/04/18 Range/Units 18:52 08:00 11:41 Hgb (12.0-16.0) g/dL Hct (37-47) % PT (9.0-12.0) Seconds INR (0.9-1.1) Potassium (3.5-5.1) mmol/L Chloride (98-107) mmol/L BUN (7-18) mg/dl Creatinine (0.6-1.2) mg/dl Glucose (70-99) mg/dl POC Glucose 103 H 123 H (70-99) Calcium (8.5-10.1) mg/dl Crossmatch See Detail 10/04/18 10/04/18 10/05/18 Range/Units 16:49 21:05 07:09 Hgb (12.0-16.0) g/dL Hct (37-47) % PT (9.0-12.0) Seconds INR (0.9-1.1) Potassium 5.3 H (3.5-5.1) mmol/L Chloride 113 H (98-107) mmol/L BUN 35 H (7-18) mg/dl Creatinine 2.06 H (0.6-1.2) mg/dl Glucose 101 H (70-99) mg/dl POC Glucose 134 H 116 H (70-99) Calcium 8.1 L (8.5-10.1) mg/dl Crossmatch 10/05/18 10/05/18 Range/Units 07:09 07:09 Hgb 7.8 L (12.0-16.0) g/dL Hct 26.1 L (37-47) % PT 19.7 H (9.0-12.0) Seconds INR 2.0 H (0.9-1.1) Potassium (3.5-5.1) mmol/L Chloride (98-107) mmol/L BUN (7-18) mg/dl Creatinine (0.6-1.2) mg/dl Glucose (70-99) mg/dl POC Glucose (70-99) Calcium (8.5-10.1) mg/dl Crossmatch (1) Anemia Anemia type: unspecified type Qualified Code(s): D64.9 - Anemia, unspecified
[2018-10-05] MEDS: PANTOprazole 40 MG TAB PO SCH (09:13)
[2018-10-05] MEDS: FERROUS SULFATE 325 MG TAB PO SCH (09:14)
[2018-10-05] MEDS: FOLIC ACID 1 MG TAB PO SCH (09:14)
[2018-10-05] MEDS: NYSTATIN POWDER 15GM BTL EXT SCH (09:15)
[2018-10-05] MEDS: INSULIN ASPART 100 UNITS/ML 3 ML PEN SC SCH ×2 (09:17→12:49)
--- NOTE | 2018-10-05 12:25 | Hospitalist Progress Note ---
Date of Service October 05, 2018 Assessment & Plan (1) Weakness: Patient is an 88 yr female who presents with ambulatory dysfunction, fall, found to have urinary tract infection, possible dehydration, decubitus ulcer and also ongoing fungal infection and trace Hemoccult positive with anemia. Ambulatory dysfunction. H/O falls at home PT/OT Needs Rehab placement Patient currently prefers to be discharged home Anemia, Multifactorial In setting of Supratherapeutic INR Microcytic anemia consistent with iron deficiency anemia H/O duodenal ulcers in the past, on Coumadin H/O hemorrhoids Trace Hemoccult positive in ED Patient not interested in any interventions/Heroic measures Refuses PRBC transfusions Appreciate GI Input Continue PPI BID normal vitamin B12 low folic acid--continue folic acid supplements daily low iron levels, received venofer IV on 09/24/18 for iron deficiency and continue with daily iron supplements Monitor CBC Hb 7. 8 today Continues to refuse PRBCs transfusion DM II: Peripheral vascular disease and peripheral neuropathy HbA1c 7.3 Hold glipizide Continue ISS Venous insufficiency with denuded skin bilateral lower legs, risk for cutaneous breakdown, ulceration, poa buttocks Pressure ulcer, stage 3, POA Painful onychomycosis. seen by podiatry on 09/24/18: Debridement of mycotic nails; continued offloading devices as seen at bedside with heel protectors and bandaging. regular podiatry follow up Continue wound care Fungal infection intertrigo, POA Dermatitis associated with incontinence Continue wound Care Continue antifungal powder UTI: Urine Culture: E.coli Completed IV Abx FRANKLYN on CKD III Due to ATN Avoid Nephrotoxic agents Appreciate Nephrology Input Hold Diuretics, Lisinopril for now IV fluids discontinued Monitor volume status No indication for HD Cr:2.06 today Continue supportive management Monitor renal function Given lasix for mild hyperkalemia today Plan to discharge on lasix MWF 20mg Plan to hold lisinopril upon discharge for now Chronic R sided heart failure with preserved EF Resume Lasix, lisinopril, Metoprolol as able H/O HTN Hypotension during hospital stay BP stable Monitor Normal TSH, cortisol levels blood cultures:No growth to date Hypernatremia: Resolved Received IV fluids Monitor sodium levels H/O CAD on statin and Toprol-XL. Hypoalbuminemia Continue supplements with meals H/O PE and DVT S/P IVC filter Supratherapeutic INR Monitor INR: 4.0>>>3.2>>2.9>>>2.4>>1.9>>2.0 Give Coumadin 2mg today Osteoarthritis Stable DVT Px: on Coumadin Code status: DNI/DNR Disposition: Plan to discharge to SNF if patient agrees Subjective Patient is seen and examined at bedside No new complaints Hb dropped to 7.8 today Refuses Blood Transfusion Discussed with Nephrology today Creatinine continues to improve off diuretics Denies chest pain, SOB, dizziness, abd pain Plan to discharge to SNF today Physical Exam Vital Signs (Past 24 Hours): Last Vital Signs Temp 36.7 C 10/05/18 07:22 Pulse 88 10/05/18 07:22 Resp 20 10/05/18 07:22 BP 128/74 10/05/18 07:22 Pulse Ox 100 10/05/18 07:22 Physical Exam: Physical Exam: Vitals signs as noted above General Appearance:Obese, no apparent distress Head: normocephalic, Atraumatic Eyes: normal inspection, EOMI Neck: supple, Trachea midline Respiratory/Chest: Normal breath sounds, CTA Cardiovascular: S1, S2, No murmur Abdomen/GI:Soft, Non tender, +Abd hernia, Bowel sounds present Sacrum: +Pressure Ulcer Extremities/Musculoskelatal:normal inspection, no edema, +Denuded skin Neurologic/Psych:AAOX3, grossly no focal neurological deficits Skin: normal color, warm Results & Data Laboratory Results Short CBC 10/05/18 Range/Units 07:09 Hgb 7.8 L (12.0-16.0) g/dL Hct 26.1 L (37-47) % BMP 10/05/18 07:09 Sodium 143 Potassium 5.3 H Chloride 113 H Carbon Dioxide 25 BUN 35 H Creatinine 2.06 H Glucose 101 H Calcium 8.1 L
--- NOTE | 2018-10-05 13:15 | Discharge Summary ---
Date of Service October 05, 2018 Admission HPI Per Admitting Provider CHIEF COMPLAINT: Weakness, fall. HISTORY OF PRESENT ILLNESS: An 88-year-old female with past medical history significant for type 2 diabetes, right-sided heart failure, hypertension, history of NM, history of hemorrhoids, gastrointestinal hemorrhage, generalized osteoarthritis, iron deficiency anemia, history of pulmonary embolism, venous thrombosis on Coumadin, was brought in because of fall at home. The patient lives alone but son lives close by and other family lives close by and they help her every day. They go and see her 3-4 times every day. The patient has a hospital bed and she also has a lift chair. As per son, the patient is not ambulating since last 3 weeks before she used to at least transfer from the chair to the bed but right now she is just sitting on her recliner chair and she just gets up and sits on the commode for bathroom and the family has to help wipe her and she goes back to recliner chair and stays there whole day .Three weeks ago, she had a fall. Her falls were generally sliding from the chair, but at that time she adamantly refused to come to the hospital and get admitted and she had refused to go to any halfway, but today again she fell a couple of times, slid from her lift chair and she agreed to come to the hospital. The patient's appetite is good. She is eating regular food, she can swallow okay. She gets Food on Wheels and also family help get the food sometimes. She says she is going to bathroom okay, micturating fine. No burning micturition. Stools are fine. Denies any abdominal pain. She was nauseous on and off. She has occasional dry cough. Denies any chest pain, no shortness of breath, no headache, no blurred vision, no sore throat, no fever, no chills, feeling somewhat chilly, but no fevers. She has chronic lower extremity erythema and swelling, some skin changes, but that gets on and off worse and states that lately she also developed some ulcers in the buttock region and she also has a fungal infection going on below the breast, groins and perineum region and possibly in lower extremity too. Currently, resting comfortable and hemodynamically stable, alert and oriented and her INR was 5.1 in the ER, her hemoglobin was 9.8, she did not go to doctors for about a year as per the son and she refused to go and her last hemoglobin was in 2015 and was 12.3. She was trace Hemoccult positive in the ER. She was given Protonix in the ER and IV vitamin K. She also has history of GI bleed in the past. She was found to be anemic in 02/2009 and she was scoped at that time and found to be due to the duodenal bulb ulcer and also mild gastritis. At that time she was taking 81 strength aspirin eight tablets per day for arthritis and she stopped taking them but after that she developed a pulmonary embolism and DVT transferred by ambulance To [place] and s/p IVC filter placement as well as placed on Coumadin and she again followed GI after that in 2009 and she declined colonoscopy at that time and she seems to be not taking aspirin or NSAIDs on Tylenol p.r.n. for pain. Admission Exam Per Admitting Provider PHYSICAL EXAMINATION: GENERAL: The patient is of moderate build, not in acute distress. The patient is obese. VITAL SIGNS: Temperature 36.5, pulse 85, respiratory rate 18, blood pressure 90/43, oxygen 99% room air. HEENT: No pallor, no icterus. Pupils equal, round and reactive to light. NECK: No JVD, no neck mass, no carotid bruit. CARDIOVASCULAR: S1, S2 heard, regular rate and rhythm, no murmur, no gallop. RESPIRATORY SYSTEM: Normal AP diameter. No accessory muscle use. No wheezing, no crackles. ABDOMEN: Soft. Bowel sounds present. Nontender. No distention. CENTRAL NERVOUS SYSTEM: Alert and oriented. Cranial nerves II-XII grossly nonfocal. EXTREMITIES: Lower extremity, mild pedal edema present and some mild erythematous changes. SKIN: Erythematous whitish rash seen under her breast, the groins and perineal region and lower extremity and also stage II decubitus ulcers seen in the sacral region. Principal Diagnosis Discharge Information Discharge Diagnosis Anemia UTI Ambulatory dysfunction FRANKLYN on CKD Decubitus Pressure ulcer Discharge Goals Decrease discomfort,Improve function,Improve disease control Discharge Activity Limitations Resume your previous activity Discharge Data Allergies Allergy/AdvReac Type Severity Reaction Status Date / Time morphine Allergy Unknown Verified 09/23/18 19:31 codeine AdvReac Unknown UPSET Verified 09/23/18 19:40 STOMACH Consultations 09/23/18 21:36 ED Decision to Admit Stat 09/24/18 00:36 Consult Case Management - Discharge Planning Routine 09/24/18 08:00 Consult Gastroenterology Routine 09/24/18 09:41 Consult Wound Care Provider Routine 09/24/18 09:43 Consult Podiatry Routine 09/28/18 09:46 Consult Nephrology Routine 10/02/18 13:27 Consult Palliative Care Routine Procedures Performed CT head: No acute intracranial findings. CXR: No acute cardiopulmonary findings. Renal USD: 1. No renal calculi or hydronephrosis. 2. Increased echogenicity of the bilateral kidneys is suggestive of chronic medical renal disease. 3. Cortical scarring noted about the interpolar right kidney. 4. Bilateral renal cysts. 5. Decompressed urinary bladder with catheter noted. Ordered Studies 09/23/18 18:32 CT head/brain wo con Stat 09/29/18 08:24 US renal/blad retro comp Urgent Hospital Course (1) Weakness: Patient is an 88 yr female who presents with ambulatory dysfunction, fall, found to have urinary tract infection, possible dehydration, decubitus ulcer and also ongoing fungal infection and trace Hemoccult positive with anemia. Ambulatory dysfunction. H/O falls at home PT/OT Needs Rehab placement Patient currently prefers to be discharged home Anemia, Multifactorial In setting of Supratherapeutic INR Microcytic anemia consistent with iron deficiency anemia H/O duodenal ulcers in the past, on Coumadin H/O hemorrhoids Trace Hemoccult positive in ED Patient not interested in any interventions/Heroic measures Refuses PRBC transfusions Appreciate GI Input Continue PPI BID normal vitamin B12 low folic acid--continue folic acid supplements daily low iron levels, received venofer IV on 09/24/18 for iron deficiency and continue with daily iron supplements Monitor CBC Hb 7. 8 today Continues to refuse PRBCs transfusion DM II: Peripheral vascular disease and peripheral neuropathy HbA1c 7.3 Hold glipizide Continue ISS Venous insufficiency with denuded skin bilateral lower legs, risk for cutaneous breakdown, ulceration, poa buttocks Pressure ulcer, stage 3, POA Painful onychomycosis. seen by podiatry on 09/24/18: Debridement of mycotic nails; continued offloading devices as seen at bedside with heel protectors and bandaging. regular podiatry follow up Continue wound care Discussed with the patient regarding her Pressure Ulcer: Patient doesn't prefer to get any procedures or debridement for the ulcer. She is agrees with topical ointment or wound care. "IT DOESN'T BOTHER ME. LEAVE IT ALONE" Fungal infection intertrigo, POA Dermatitis associated with incontinence Continue wound Care Continue antifungal powder UTI: Urine Culture: E.coli Completed IV Abx FRANKLYN on CKD III Due to ATN Avoid Nephrotoxic agents Appreciate Nephrology Input Hold Diuretics, Lisinopril for now IV fluids discontinued Monitor volume status No indication for HD Cr:2.06 today Continue supportive management Monitor renal function Given lasix for mild hyperkalemia today Plan to discharge on lasix MWF 20mg Plan to hold lisinopril upon discharge for now Chronic R sided heart failure with preserved EF Resume Lasix, lisinopril, Metoprolol as able H/O HTN Hypotension during hospital stay BP stable Monitor Normal TSH, cortisol levels blood cultures:No growth to date Hypernatremia: Resolved Received IV fluids Monitor sodium levels H/O CAD on statin and Toprol-XL. Hypoalbuminemia Continue supplements with meals H/O PE and DVT S/P IVC filter Supratherapeutic INR Monitor INR: 4.0>>>3.2>>2.9>>>2.4>>1.9>>2.0 Give Coumadin 2mg today Osteoarthritis Stable DVT Px: on Coumadin Code status: DNI/DNR Disposition: Plan to discharge to SNF if patient agrees Total Time Total Time Spent Total Time Spent (In Minutes): 45 minutes Total Time Includes: Examination of the Patient, Discharge Planning, Medication Reconciliation, Communication With Other Providers and Other Discharge Plan Discharge Items Patient Disposition: Transfer [facility] Living Fac Reason For Visit: FALL,WEAKNESS Discharge Diagnosis: Anemia UTI Ambulatory dysfunction FRANKLYN on CKD Decubitus Pressure ulcer Discharge Goals: Decrease discomfort, Improve disease control and Improve fu nction Activity: Resume your previous activity Exercise/Sports: Gradually increase as tolerated Non-emergency contact: Primary Care Provider, Teacher Asst and Clinical Interviewer Call non-emergency contact if: you have any medication questions, your symptoms worsen, your pain is not controlled, your pain is worsening, your pain is unusual for you, your pain is concerning for you and you have a fever Follow-up/Referrals: Heri Blackmon MD [Primary Care Provider] - Diet: Carb Consistent or DM2 and Low Potassium (2gm) Addtl Provider Instructions: Follow up with your PCP in 1 week Follow up with your Clinical Interviewer in 2 weeks Follow up with your wound care physician as advised Continue wound care at SNF Check PT/INR on 10/06/18 and follow up with your Physician at [facility] for coumadin dosing Your PT/INR is 2.0 today. Take 2 mg coumadin today (10/05/18) Plan to discharge on lasix 20mg PO MWF Plan to hold lisinopril upon discharge until follow up with Nephrology Seek immediate medical attention if your symptoms reoccur or worsen Prescriptions: New ferrous sulfate 325 mg (65 mg iron) Tablet,Delayed Release (Dr/Ec) 325 mg PO QAM 30 Days Qty: 30 RF: 0 silver sulfadiazine [SSD] 1 % Cream 1 applic EXT BID 30 Days Qty: 1 RF: 0 polyethylene glycol 3350 [Miralax] 17 gram Powder In Packet 17 g PO DAILY PRN (Reason: constipation) 14 Days Qty: 14 RF: 0 pantoprazole 40 mg Tablet,Delayed Release (Dr/Ec) 40 mg PO BID 30 Days Qty: 60 RF: 0 folic acid 1 mg Tablet 1 mg PO QAM 30 Days Qty: 30 RF: 0 nystatin [Nystop] 100,000 unit/gram Powder 1 applic EXT BID 30 Days Qty: 1 RF: 0 Continued atorvastatin [Lipitor] 20 mg tablet 20 mg PO HS RF: 0 metoprolol succinate [Toprol XL] 50 mg tablet extended release 24 hr 50 mg PO HS RF: 0 tramadol 50 mg Tablet 50 mg PO Q6H PRN (Reason: Pain) RF: 0 acetaminophen [Tylenol Extra Strength] 500 mg Tablet 500 mg PO QID PRN (Reason: Pain) RF: 0 warfarin [Coumadin] 2 mg tablet 2 mg PO UD RF: 0 glipizide 5 mg Tablet 5 mg PO BID RF: 0 cholecalciferol (vitamin D3) [Vitamin D3] 1,000 unit Tablet 1,000 unit PO HS RF: 0 Changed furosemide 20 mg tablet 20 mg PO 3XWK Qty: 0 RF: 0 Discontinued potassium chloride 10 mEq Tablet Extended Release 10 meq PO DAILY RF: 0 lisinopril 2.5 mg Tablet 2.5 mg PO HS RF: 0 Stand-Alone Forms: [facility] Discharge Orders: Discharge Order (Routine); Ordered 10/05/18 Ordered By: Jan Nazario Skilled Items Patient informed of condition?: Yes DNR: Yes Discharge Level of Care: Skilled Communicable Disease: No Discharge Prognosis: Stable Admission Data Admit Date/Time: 09/23/18 23:04 Attending Provider: Jan Nazario Admit Provider: Gutierrez Desouza Primary Care Provider: Heri Blackmon Other Providers: Gutierrez Desouza ; Verena Phillips ; Boston Gupta ; Cherelle iH ; Maldonado Reid ; Jada Min ; Stephen Degroot ; Jayna Oden ; Sanford Finney ; Guicho Land ; Cindy Eaton ; Erin Morel ; Elana Hammonds ; Geovanna Alcazar ; Alejandro Humphreys ; Hua Root ; Marta Price ; Shalini Rincon. ; Hermann Dacosta ; Cass Varela Service: Medical Other Interventions: Discharge Summary Assessment (RN) Last Done: 10/05/18 14:31 Pending Studies at Discharge: No DC Date/Time DO NOT enter until pt leaves facility: 10/05/18 16:56
--- NOTE | 2018-10-05 13:37 | Palliative Care Progress Note ---
Date of Service October 05, 2018 Assessment & Plan (1) Goals of care, counseling/discussion: Pt is an 88 year old female patient with PMH significant for type 2 diabetes, right-sided heart failure, hypertension, IA, hemorrhoids, gastrointestinal hemorrhage, generalized osteoarthritis, iron deficiency anemia, history of pulmonary embolism, venous thrombosis on Coumadin, and gastric ulcers, presented to the hospital on 09/23 after sliding out of her recliner chair at home. Patient lives at home alone, but her family lives close by, her son checks on her 3-4 times a day. Patient had been having frequent falls. Per report, has been ambulating less and less at home. Really only gets out of chair to go to bedside commode which family helps her empty. In ED, stool positive for hemoccult. Since admission to hospital, patient has had complications with low hgb, stable at 7.8 - refusing transfusions, acute kidney injury, UTI (E. coli), BL leg wounds/cellulitis, and fungal skin infections in skin folds. Also has sacral ulcer from sedentary lifestyle. GI was consulted, but patient declined an y invasive procedure for the possible GI bleed. She was given Vitamin K for elevated INR of 5. Nephrology consulted for the acute kidney injury. Creatinine peaked at 3.56, now down to 2.06, prior baseline was 1.4-1.6. Patient has been refusing blood transfusions. Did make herself a DNR, but there is question about goals of care. Palliative care is consulted. -Patient would be okay with returning to hospital for easily reversible causes, but again DOES NOT want heroic or invasive measures. -PT/OT are consulted. If they recommend SNF for rehab, plan to d/c today to [facility] for half-way. -If patient is here on Friday, will follow up. (3) [place] (acute kidney injury): (4) Pressure ulcer of buttock, unstageable: (5) Dermatitis associated with incontinence: (6) Heme positive stool: (7) Anemia: (2) Anemia: Hemoglobin has been stable the last several days at 7.8-patient refuses any transfusions (3) Heme positive stool: Patient has refused any workup-refused EGD or colonoscopy-goal is comfort measures (4) Weakness: Plan to transfer to [facility] half-way for rehab with goal of returning home (5) SOB (shortness of breath): Patient comfortable on O2 at 2 L-sats 100% Subjective Patient seen and examined, no family at bedside. Patient has refused transfusion-hemoglobin stable at 7.8. Patient denies any discomfort or increased shortness of breath, comfortable on O2 at 2 L nasal cannula. Review of Systems Patient denies fever, chills, chest pain, increased shortness of breath, or GI issues. Physical Exam Vital Signs (Past 24 Hours): Last Vital Signs Temp 36.7 C 10/05/18 07:22 Pulse 88 10/05/18 07:22 Resp 20 10/05/18 07:22 BP 128/74 10/05/18 07:22 Pulse Ox 100 10/05/18 07:22 Physical Exam: PE: Mild dyspnea at rest, no acute distress HEENT: EOMI, hearing within normal limits Respiration: Diminished breath sounds, mild dyspnea at rest, no rales or rhonchi CV: Regular rate, decreased lower extremity edema Abdomen: Soft, nontender, positive bowel sounds Neuro: Alert and oriented Time Spent Attending Total time spent 25 minutes with greater than 50% of the time spent at bedside confirming patient's goals of care-patient remains a DNR, does not want any invasive measures, is agreeable to hospitalization for issues that can be reversed. (1) Anemia Anemia type: unspecified type Qualified Code(s): D64.9 - Anemia, unspecified
[2018-10-05] MEDS: WARFARIN SOD 4 MG TAB PO SCH (15:31)
--- NOTE | 2018-10-07 08:33 | Coding Query ---
CODING QUERY To promote full compliance with coding requirements relating to patient care, provider participation is requested in all cases of teleprinter uncertainty. Please assist us with the question(s) below: Coding Question(s): There is documentation in the record of history of falls and frequent falls and documentation of ambulatory dysfunction with history of falls and there is PT/OT and discharge placement in SNF. Please clarify below regarding the history of falls and frequent falls. ( X ) The patient had Repeated Falls likely due to comorbidities/Generalized weakness. It was a significant reason for the admission ( ) The patient had Repeated Falls and the reason for the fall(s) was investigated during this admission but it was Not a significant reason for the admission ( ) The patient had Repeated Falls but the reason was not investigated during this admission ( ) The patient had a history only of falling, and did not have Repeated Falls Physician's Response(s): Thank you Sabrina Cosby Principal Diagnosis: "that condition established after study, to be chiefly responsible for occasioning the admission of the patient to the hospital for care." Co-Existing Principal Diagnosis: "when two or more diagnoses equally meet the criteria for principal diagnosis as determined by the circumstances of admission, diagnostic work up, and/or therapy provided, and the Alphabetic Index, Tabular List, or another coding guideline does not provide sequencing direction, any one of the diagnoses may be sequenced first." "When the physician has documented what appears to be a current diagnosis in the body of the record, but has not included the diagnosis in the final diagnostic statement, the physician should be asked whether the diagnosis should be added." (Source [facility] 2 QTR90. p3-4) SMITHA
== END 2018-10-05 16:56 | DRG 689 ==
LOC: ED 18:18 → SUATTDRO 23:04 → 4W 23:04